=== PATIENT | male | born 1950 | race Caucasian/White ===

== ENCOUNTER → 2017-03-22 | Outpatient (CLI) | payer OTHER ==
[~2017-03-22] MED LIST: ASPCH81 PO; ATOR10TA88 PO; CHOL100027 PO; CLR10 PO; CLTP PO; FISHOIL PO; FLNIN; LISI20TA55 PO; MULT-506 PO
== END | disposition home or self-care (01) ==
LOC: C.LAB 14:47
PROVIDERS: ATTEND Orthopaedic Surgery Sports Medicine
DX: S83.242D Other tear of medial meniscus, current injury, left knee, subsequent encounter (principal); X58.XXXA Exposure to other specified factors, initial encounter

== ENCOUNTER 2024-04-13 11:13 | Observation (INO) ==
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
[2024-04-13] MEDS: SODIUM CHLORIDE 0.9% 1,000 ML IV SCH (11:21)
[2024-04-13] MEDS: RAPID SEQUENCE INDUCTION BAG ONE (11:21)
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
[2024-04-13] MEDS: DIPHTHER/TETAN/PERTUS Vaccine (Tdap, Adol/Adult) 0.5mL IM ONE (11:48)
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
[2024-04-13] MEDS: AMPICILLIN/SULBACTAM SOD 3,000 MG in SODIUM CHLOR 0.9% MINI-B 100 ML IV STA (12:14)
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
[2024-04-13 12:51] LABS: Basophils # (auto) 0.04 K/uL (0.00-0.20); Basophils % (auto) 0.5 %; Eosinophils # (auto) 0.11 K/uL (0.00-0.50); Eosinophils % (auto) 1.5 %; Hematocrit (blood only) 38.9 % (42.0-52.0); Hemoglobin 13.3 g/dl (14.0-18.0); Immature Granulocytes # (auto) 0.02 K/uL (0.01-0.20); Immature Granulocytes % (auto) 0.3 %; Lymphocytes # (auto) 1.96 K/uL (1.20-3.40); Lymphocytes % (auto) 26.2 %; Mean Corpuscular Hemoglobin 28.9 pg (25.0-34.0); Mean Corpuscular Hgb Conc 34.2 g/dL (32.0-36.0); Mean Corpuscular Volume 84.4 fL (80.0-100.0); Mean Platelet Volume 8.1 fL (9.4-12.4); Monocytes # (auto) 0.73 K/uL (0.11-0.59); Monocytes % (auto) 9.8 %; Neutrophils # (auto) 4.62 K/uL (1.40-6.50); Neutrophils % (auto) 61.7 %; Platelet Count 232 K/uL (130-400); RDW Coefficient of Variation 12.8 % (11.5-14.5); RDW Standard Deviation 39.3 fL (36.4-46.3); Red Blood Count 4.61 M/uL (4.70-6.10); White Blood Count 7.48 K/ul (4.8-10.8)
[2024-04-13 13:10] LABS: Partial Thromboplastin Ratio 0.9; Partial Thromboplastin Time 25 Seconds (21-31); Prothrombin Time 10.5 Seconds (9.0-12.0)
[2024-04-13 13:14] LABS: BUN Creatinine Ratio 18.5 (10-20); Calcium 9.6 mg/dl (8.6-10.3); Creatinine Clr Calc Pharmacy 48.8 ml/min; Est GFR (African American) 59.1 ml/min; Potassium 3.8 mmol/L (3.5-5.1)
[2024-04-13] MEDS ORDERED: MoRPHine SULFATE 4 MG/ML 1 ML CARP\\VIAL IV PRN (14:37)
[2024-04-13] MEDS ORDERED: MoRPHine SULFATE 2 MG/ML CARP IV PRN (14:37)
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
[2024-04-13] MEDS ORDERED: MIDAZOLAM HCL 1 MG/ML 2ML VIAL ONE (16:14)
[2024-04-13] MEDS ORDERED: fentaNYL citrate PF 100 MCG/2 ML VIAL ONE (16:14)
[2024-04-13] MEDS ORDERED: PROPOFOL IV EMULSION 10 MG/ML 20 ML VIAL IV ONE (16:19)
[2024-04-13] MEDS ORDERED: LIDOCAINE 2% 2 ML VIAL/AMP(20MG/ML) INFIL ONE (16:19)
[2024-04-13] MEDS ORDERED: ROCURONIUM BROMIDE 10 MG/ML 5 ML VIAL IV ONE (16:19)
[2024-04-13] MEDS ORDERED: GLYCOPYRROLATE 0.2 MG/ML VIAL ONE (16:19)
[2024-04-13] MEDS ORDERED: ONDANSETRON INJ 2 MG/ML 2 ML VIAL ONE (16:19)
[2024-04-13] MEDS ORDERED: DEXAMETHASONE SOD INJ 4 MG/ML VIAL ONE (16:19)
[2024-04-13] MEDS ORDERED: SUGAMMADEX SODIUM 200 MG/2 ML VIAL IV ONE (16:20)
[2024-04-13] MEDS ORDERED: ePHEDrine sulfate 50 MG/ML AMP IV PRN (16:22)
[2024-04-13] MEDS ORDERED: ATROPINE SULFATE 0.1 MG/ML 10ML SYR IV PRN (16:22)
[2024-04-13] MEDS ORDERED: DROPERIDOL 5 MG/2 ML VIAL IV PRN (16:22)
--- NOTE | 2024-04-13 16:22 | Anesthesiology Consultation ---
Date of Service April 13, 2024 Assessment & Plan Chart Review Chart Review: Acceptable Risk for Surgery and Patient NOT seen in Pre Admission Testing Consults Requested none History Surgery Operation Date: 04/13/24 18:20 Proposed Procedures p Open Reduction Mandibular Fracture, Repair of Facial Laceration - Mark Ledesma DMD s Extraction of Fractured Teeth - Mark Ledesma DMD Height/Weight Height: 5 ft 10 in Weight: 87.2 kg Allergies Allergy/AdvReac Type Severity Reaction Status Date / Time No Known Drug Allergies Allergy Mild Verified 09/26/23 14:22 strawberry Allergy Unknown UKN Verified 09/26/23 14:22 Medications Home Medications Medication Instructions Recorded Confirmed Last Taken Flonase 1 spray intranasal DAILY, PRN ##0 02/16/09 04/13/24 Unknown loratadine 10 mg tablet 1 tab PO DAILY PRN ##0 02/16/09 04/13/24 Unknown multivitamin 1 tab PO DAILY ##0 02/16/09 04/13/24 Unknown Caltrate 600 plus D 1 tab PO DAILY ##0 12/27/10 04/13/24 Unknown Fish Oil 1 cap PO BID ##0 01/01/12 04/13/24 Unknown cholecalciferol (vitamin D3) 25 1,000 inter.unit PO DAILY ##0 01/01/12 04/13/24 Unknown mcg (1,000 unit) capsule aspirin 81 mg tablet 81 mg PO DIRECTED 09/07/22 04/13/24 Unknown atorvastatin 20 mg tablet (Lipitor) 20 mg PO DAILY 09/07/22 04/13/24 Unknown lisinopril 20 1 tab PO DAILY 04/13/24 04/13/24 Unknown mg-hydrochlorothiazide 25 mg tablet Active Medications Generic Name Dose Route Start Last Admin Trade Name Freq PRN Reason Stop Dose Admin Sodium Chloride 1,000 mls @ 125 mls/hr 04/13/24 11:15 04/13/24 11:21 Nss IV 05/13/24 11:14 125 mls/hr .Q8H ASYA Administration NPO Date Last Intake of Fluids: 04/13/24 Time Last Intake of Fluids: 05:30 Date Last Intake of Solids: 04/13/24 Time Last Intake of Solids: 05:30 Past Medical History Medical History Allergic rhinitis Vitamin D deficiency Prediabetes History of basal cell carcinoma Male erectile disorder of organic origin Malignant neoplasm of prostate Past Family History Family History Other Diabetes Hypertension Stroke Past Surgical History Surgical History History of bilateral carpal tunnel release History of arthroscopy of left shoulder Social History Smoking Status: Never smoker Hx Alcohol Use: No Hx Substance Use: No Physical Exam Vital Signs Last Vital Signs Temp 36.6 C 04/13/24 15:14 Pulse 88 04/13/24 15:14 Resp 18 04/13/24 15:14 BP 151/77 H 04/13/24 15:14 Pulse Ox 96 04/13/24 15:14 O2 Del Method Room Air 04/13/24 15:14 Testing Laboratory Results 04/13/24 11:21 04/13/24 11:21 PT 10.5 Seconds (9.0-12.0) 04/13/24 11:21 INR 1.0 (0.9-1.1) 04/13/24 11:21 APTT 25 Seconds (21-31) 04/13/24 11:21 Blood Type A Positive 04/13/24 11:21 Antibody Screen NEGATIVE 04/13/24 11:21
[2024-04-13] MEDS: CHLORHEXIDINE GLUCONATE 0.12% 480 ML MT ONE (17:49)
[2024-04-13] MEDS: AMPICILLIN/SULBACTAM SOD 3,000 MG in SODIUM CHLOR 0.9% MINI-B 100 ML IV ONE (18:00)
[2024-04-13] MEDS: BUPIVACAINE/EPINEPHRINE 0.5% 1:200,000 1.8 ML CARP ONE (18:17)
--- OUTSIDE RECORDS SUMMARY | 2024-04-13 18:37 | External Medical Summary | Summary of Care ---
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 Name Role Phone Miguelangel Hernández MD Primary Care Provider [phone] Encounter Details Date Type Department Care Team (Late st Contact Info) Description 02/27/2024 Telephone [facility] [address] [place] [address] Miguelangel Hernández MD [address] [place] [address] Allergies Active Allergy Reactions Criticality Noted Date Comments Other - Environmental 06/06/2004 hayfever Soy Allergy 11/26/2013 [place] Extract Hives 11/10/2021 documented as of this encounter (statuses as of 03/10/2024) Medications Medication Sig Dispensed Refills Start Date End Date Status CLARITIN 10 MG PO TABSIndications:Morgan rgic rhinitis due to other allergen 1 TABLET DAILY 90 3 07/26/2008 Active FISH OIL 1000 MG PO CAPS 2 daily Active MENS MULTIVITAMIN PLUS PO TABS 1 daily Active VITAMIN D 1000 UNITS PO CAPSIndications:Sarah min D deficiency 1 capsule daily 30 Cap 11 10/16/2013 Active CALCIUM 500/D 500-200 MG-UNIT PO TABSIndications:Othe r specified prophylactic or treatment measure 1 tab daily 1 Tab 0 10/20/2014 Active White Petrolatum-Mineral Oil (LUBRICATING) 83-15 % OINTIndications:Dry eyes, bilateral Instill into both eyes every night at bedtime. 1 Tube 5 11/03/2018 Active Additional Information Patient not taking.Reported on 02/11/2024 Sildenafil Citrate 100 MG Oral Tablet TAKE ONE TABLET BY MOUTH NEEDED FOR ED 11/03/2019 Active Fluticasone Propionate 50 MCG/ACT Nasal Suspension (Flonase) Administer 2 Sprays into each nostril in the morning. 48 g 2 05/01/2023 Active Diclofenac Sodium 1 % External Gel (Voltaren)Indication s:Medial epicondylitis of right elbow Apply topically to affected area 4 times a day. Apply to R elbow - - use a quarter sized dollop 350 g 1 11/29/2023 Active Refresh 1.4-0.6 % Ophthalmic Solution (polyvinyl alcohol-povidone PF) 1 Drop in the morning and 1 Drop before bedtime. Active Lisinopril-hydroCHLO ROthiazide 20-25 MG Oral TabletIndications:HT N, goal below 140/90 Take 1 Tablet by mouth in the morning. 90 Tablet 3 02/26/2024 Active Atorvastatin Calcium 20 MG Oral Tablet (Lipitor)Indications :Dyslipidemia, goal LDL below 100 Take 1 Tablet by mouth in the morning. 90 Tablet 3 02/26/2024 Active documented as of this encounter (statuses as of 03/10/2024) Active Problems Problem Noted Date Diagnosed Date Prediabetes 11/20/2021 Overview: Per Prediabetes protocol Stage 3a chronic kidney disease 07/18/2020 Overview: Per CKD protocol Malignant neoplasm of prostate 11/05/2019 Personal history of malignant neoplasm of prosta te 10/31/2017 Dyslipidemia, goal LDL below 100 08/14/2013 Vitamin D deficiency 10/02/2012 History of basal cell carcinoma 08/25/2012 Overview: left lower eyelid 01/17 ADVANCE DIRECTIVE INFORMATION 06/07/2005 Overview: no advance directive- has info DJD, LEFT KNEE 01/06/2004 Enthesopathy of hip 01/06/2004 HTN, goal below 140/90 04/26/2003 Chronic rhinitis 04/26/2003 GENERAL OSTEOARTHROSIS 04/26/2003 Other allergic rhinitis Overview: ICD-10 update of inactive term documented as of this encounter (statuses as of 03/10/2024) Resolved Problems Problem Noted Date Diagnosed Date Resolved Date Kidney disease, chronic, sta ge III (GFR 30-59 ml/min) 11/17/2018 07/21/2020 Overview: Per CKD protocol #1 History of nonmelanoma skin cancer 08/29/2017 10/31/2017 Overview: BCC left lower eyelid 01/17 Vitamin D deficiency 10/09/2011 018 MALIGN NEOPL PROSTATE 08/22/20042017 Elevated prostate specific antigen (PSA) 05/25/2004 10/31/2017 Elevated prostate specific antigen (PSA) 05/25/2004 10/14/2008 Overview: Resolved per Duplicate Protocol #2. Spasm of muscle 01/06/2004 10/31/2017 Enthesopathy of hip 01/06/2004 10/14/19 09 Overview: Resolved per Duplicate Protocol #2. Spasm of muscle 01/06/2004 10/14/2008 Overview: Resolved per Duplicate Protocol #2. Enthesopathy of hip 01/06/2004 10/14/19 09 Overview: Resolved per Duplicate Protocol #2. ROUTINE MEDICAL EXAM 04/26/2003 018 SCREEN MAL NEOP-RECTUM 04/26/200311/17 Overview: Resolved per Screening Diagnosis Protocol #6 Dyslipidemia, goal to be determined 08/14/2013 Benign prostatic hyperplasia 10/31/2017 Overview: ICD-10 update of inactive term ICD-10 update of inactive term documented as of this encounter (statuses as of 03/10/2024) Immunizations Name Administration Dates Next Due COVID-19 mRNA, LNP-s, No Pre serve, 2-Dose Series (Moderna) 11/10/2020,10/13/2020 COVID-19, mRNA, LNP-s, PF, B ooster, 100mcg/0.5mg (Moderna) 08/07/2021 Diptheria/Tetanus (Adult) 03/02/1998,09/09/1985 Pneumococcal Conjugate Vacc, 13 Valent (Prevnar) 10/24/2015 Pneumococcal Polysaccharide PPV23 (Pneumovax) 10/20/2014,06/02/2004,03/04/1997 Season Influenza, Cell Cultu re, 18+ Yrs, With Preserv (Flucelvax) 06/01/2017 Seasonal Influenza Virus Vac cine, Unspecified Formulation 07/04/2016 Seasonal Influenza, PF, 6 M & above, IM , (FluLaval or Fluzone) 06/09/2020,07/06/2019,06/02/2018 Seasonal Influenza, Quadriva lent Hd (Fluzone Hd) 06/15/2021 Seasonal Influenza, Quadriva lent, No Preserve, IM 07/02/2016,06/09/2015 Seasonal Influenza, Split, I IV3, With Preserve, Inj 05/22/2014,05/30/2013,07/24/2012,07/09,06/12/2010,07/08/2009,07/29/2008 ,07/16/2007,07/10/2006,06/28/2005,02/2003,06/24/2002 TD - Tetanus/Diptheria (ADULT) 04/23/2007 TDAP (age 10 and older)(Boostrix) 10/16/2014,03/2014 Varicella Zoster Vaccine (Adult) 09/09/2013,04/2012 Zoster Vaccine Recombinant (Shingrix) 02/17/2019 ,12/11/2018,11/04/2018 documented as of this encounter Social History Tobacco Use Types Packs/Day Years Used Date Smoking Tobacco: Never Smokeless Tobacco: Former Chew Quit: 09/09/1983 Comments:quit chew in 1982 Alcohol Use Standard Drinks/Week Comments Yes 1.7 (1 standard drink = 0.6 oz p ure alcohol) occ PHQ-2 Answer Date Recorded PHQ Adult Total Score 0 11/15/2023 Hunger Vital Sign Answer Date Recorded Worried About Running Out of Food in the Last Ye ar Never true 11/05/2019 Ran Out of Food in the Last Year Never true 11/05/2019 Utilities Answer Date Recorded Do you have trouble paying y our heating, water, or electric bill? (Adult - for ages 18 years and over) Not on file 02/25/2024 Is your family able to pay t he heat, water, or electric bill? (Household - for ages 0-17 years) Not on file 02/25/2024 Does your family have access to good internet? (Household - for ages 0-17 years) Not on file 02/25/2024 Social Connections Answer Date Recorded How often do you feel lonely or isolated from those around you? (Adult - for ages 18 years and over) Not on file 02/25/2024 Sex and Gender Information Value Date Recorded Sex Assigned at Male 11/05/2019 8:38 AM EST Gender Identity Male 11/05/2019 8:38 AM EST Sexual Orientation Straight 11/05/2019 8: 38 AM EST Job Start Date Occupation Industry Not on file Not on file Not on file documented as of this encounter Miscellaneous Notes * Telephone Encounter - Christianne Pena OSA - 02/27/2024 2:31 PM EDT 03/10/24 2nd Request for Medical Records [facility]. Release sent to [facility] today. Send to [facility]. 02/27/24 Rec Release of Medical Records from [facility] for pt. Release sent to [facility]. Sent to [facility]. documented in this encounter Plan of Treatment Upcoming Encounters Date Type Department Care Team (Late st Contact Info) Description 11/11/2024 10:40 AM EST Office Visit [facility] [place] [address] [place] [address] Ellen Allison PA-C [address] [place] [address] 11/16/2024 9:40 AM EDT Office Visit [address] [place] [address] Miguelangel Hernández MD [address] [place] [address] Health Maintenance Due Date Last Done Comments *BASELINE EKG FOR HTN 12/18/2022 COVID-19 Vaccine (2022- season) 2023 07/15/2023, 08/07/2021, 11/10/2020, Additional history exists Influenza Vaccine (FLU shot) (#1) 2024 06/15/2021, 06/09/2020, 07/06/2019, Additional history exists GFR 05/17/2024 11/15/2023, 03/2023, 11/10/2021, Additional history exists DTaP,Tdap,and Td Vaccines (3 - Td or Tdap) 10/16/2024 10/16/2014, 10/16/2013, 04/23/2007, Additional history exists Albumin/Creatinine Ratio 11/14/2024 024, 11/10/2021, 11/08/2020, Additional history exists CKD HGB USE SMARTSET 36696 11/14/202411/14, 11/13/2022, 11/10/2021, Additional history exists CKD PHOS USE SMARTSET 36911 11/14/2024 030 04/2024, 11/13/2022, 11/10/2021, Additional history exists Depression Screening 11/14/2024 11/15/2023 HbA1c 11/14/2024 11/15/2023, 0 03/2023, 11/10/2021, Additional history exists Fecal Occult Blood Test Discontinued 02/22/20, 02/08/2001, 04/20/2000, Additional history exists Pneumococcal Vaccine: 65+ Years Completed 10/24/2015, 10/20/2014, 06/02/2004, Additional history exists Zoster Vaccines Completed 02/17/2019, 040 12/2018, 11/04/2018, Additional history exists Colonoscopy Discontinued 02/19/2024, 02/07, 11/26/2013, Additional history exists Colorectal Cancer Screening Discontinued Cologuard Discontinued GARDASIL-HPV IMMUNIZATION SERIES Aged Out No longer eligible based on patient's age to complete this topic Hepatitis B Aged Out No longer eligi ble based on patient's age to complete this topic MENINGOCOCCAL (MENACTRA/MENVEO) Aged Out No longer eligible based on patient's age to complete this topic Sigmoidoscopy Discontinued documented as of this encounter Medical Devices Not on filedocumented as of this encounter Advance Directives Documents on File Type Date Recorded Patient Bioinformatics Technician Expl anation Advance Directives and Living Will 11/26/2023 signed on 11/07/2023 ADVANCE DIRECTIVE / LIVING WILL Power of Handyman 11/26/2023 signed on 11/07/2023 POWER OF TUFT MACHINE OPERATOR Care Teams Chrome Plater Helper Relationship Specialty Start Date End Date Miguelangel Hernández MD [address] [place] [address] PCP - General 01/29/02 documented as of this encounter
--- OUTSIDE RECORDS SUMMARY | 2024-04-13 18:37 | External Medical Summary | Summary of Care ---
Author Name Unknown Organization [facility] Address [address] [facility] [place] [address] Phone [phone] Care Team Providers Care Project Archivist Name Role Phone Miguelangel Hernández MD Primary Care Provider [phone] Reason for Visit * Reason Comments Acute Had a hoarse throat since his colonoscopy and has a sore throat and ear ache and not sure if he is ill now, has had symptoms for about a week and a half Encounter Details Date Type Department Care Team (Late st Contact Info) Description 03/02/2024 1:00 PM EDT Office Visit [facility] [address] [place] [address] Dayanara Renteria MD [address] [place] [address] Hoarseness of voice*; Risk and functional assessment Allergies Active Allergy Reactions Criticality Noted Date Comments Other - Environmental 06/06/2004 hayfever Soy Allergy 11/26/2013 [place] Extract Hives 11/10/2021 documented as of this encounter (statuses as of 03/02/2024) Medications Medication Sig Dispensed Refills Start Date [...] as of this encounter (statuses as of 03/02/2024) Active Problems Problem Noted Date Diagnosed Date [...] as of this encounter (statuses as of 03/02/2024) Resolved Problems Problem Noted Date Diagnosed Date [...] as of this encounter (statuses as of 03/02/2024) Immunizations Name Administration Dates Next Due COVID-19 mRNA, LNP-s, No Pre serve, 2-Dose Series (Moderna) 11/10/2020,10/13/2020 COVID-19, mRNA, LNP-s, PF, B ooster, 100mcg/0.5mg (Moderna) 08/07/2021 Pneumococcal Conjugate Vacc, 13 Valent (Prevnar) 10/24/2015 Pneumococcal Polysaccharide PPV23 (Pneumovax) 10/20/2014 Season Influenza, Cell Cultu re, 18+ Yrs, With Preserv (Flucelvax) 06/01/2017 Seasonal Influenza Virus Vac cine, Unspecified Formulation 07/04/2016 Seasonal Influenza, PF, 6 M & above, IM , (FluLaval or Fluzone) 06/09/2020,07/06/2019,06/02/2018 Seasonal Influenza, Quadriva lent Hd (Fluzone Hd) 06/15/2021 Seasonal Influenza, Quadriva lent, No Preserve, IM 07/02/2016,06/09/2015 Seasonal Influenza, Split, I IV3, With Preserve, Inj 05/22/2014,05/30/2013,07/24/2012,07/09,06/12/2010,07/08/2009,07/29/2008 ,07/16/2007,07/10/2006 TD - Tetanus/Diptheria (ADULT) 04/23/2007 TDAP (age 10 and older)(Boostrix) 10/16/2014,03/2014 Varicella Zoster Vaccine (Adult) 09/09/2013,04/2012 Zoster Vaccine Recombinant (Shingrix) 02/17/2019 ,12/11/2018,11/04/2018 documented as of this encounter Social History Tobacco Use Types Packs/Day Years Used Date Smoking Tobacco: Never Smokeless Tobacco: Former Chew Quit: 09/09/1983 Tobacco Cessation:Counseling Given: Not Answered Comments:quit chew in 1982 Alcohol Use Standard [...] on file documented as of this encounter Last Filed Vital Signs Vital Sign Reading Time Taken Comments Blood Pressure 146/64 03/02/2024 1:00 PM EDT Pulse 89 03/02/2024 1:00 PM EDT Temperature 36.5 C (97.7 F) 03/02/2024 1:00 PM ED T Respiratory Rate - - Oxygen Saturation 97% 03/02/2024 1:00 PM EDT Inhaled Oxygen Concentration - - Weight 86 kg (189 lb 9.6 oz) 03/02/2024 1:00 PM EDT Height 177.8 cm (5' 10") 03/02/2024 1:00 PM EDT Body Mass Index 27.2 03/02/2024 1:00 PM EDT documented in this encounter Patient Instructions * Patient Instructions* Otilia Bynum LPN - 03/02/2024 1:05 PM EDT Patient Instructions - Fall Prevention (This education is for all patients over 65 regardless of symptoms) Remember to take your current medications as prescribed. In order to prevent falls, you are encouraged to: Exercise Utilize assistive/adaptive devices Avoid multifocal lenses when walking Avoid hazards in home Maintain a regular toileting schedule Any questions please contact our office. Preventing Falls in the Home (This education is for all patients over 65 regardless of symptoms) As you get older, falls are more likely. Thats because your reaction time slows. Your muscles and joints may also get stiffer, making them less flexible. Illness, medications, and vision changes can also affect your balance. A fall could leave you unable to live on your own. To make your home safer, follow these tips: Floors Put nonskid pads under area rugs Remove throw rugs Replace worn floor coverings Tack carpets firmly to each step on carpeted stairs. Put nonskid strips on the edges of uncarpeted stairs Keep floors and stairs free of clutter and cords Arrange furniture so there are clear pathways Clean up any spills right away Bathrooms Install grab bars in the tub or shower Apply nonskid strips or put a nonskid rubber mat in the tub or shower Sit on a bath chair to bathe Use bathmats with nonskid backing Lighting Keep a flashlight in each room Put a nightlight along the pathway between the bedroom and the bathroom [employer] Patient Education Copyright 2008 - 2010 [employer] except where otherwise noted Preventing Falls: Exercises to Improve Balance, Flexibility, Strength, and Staying Power (This education is for all patients over 65 regardless of symptoms) Certain types of exercises may help make you less likely to fall. Try the ones below. Or do other exercises that your healthcare provider suggests. Depending on your health, you may need to start slowly. Dont let that stop you. Even small amounts of exercise can help you. Be sure to talk to yourhealthcare provider before starting any exercise program. Improve Balance Many types of exercise can help improve balance. Sudhir chi and yoga are good examples. Heres another one to try. You can do it anytime and almost anywhere. Stand next to a counter or solid support. Push yourself up onto your tiptoes. Hold for 5 seconds. If you start to lose your balance, hold on to the counter. Rest and repeat 5 times. Work up to holding for 20 to 30 seconds, if you can. Increase Flexibility Being more flexible makes it easier for you to move around safely. Try exercises like the seated hamstring stretch. Sit in a chair and put one foot on a stool. Straighten your leg and reach with both hands down either side of your leg. Reach as far down your leg as you can. Hold for about 20 seconds. Go back to the starting position. Then repeat 5 times. Switch legs. Build Strength Resistance exercises help build strength. You can do them without equipment. Or you can use weights, elastic bands, or special machines. One such exercise is called the biceps curl. You can hold a 1 pound weight or even a can of soup. Do this exercise at least 3 times a week. Strive for everyday. Sit up straight in a chair. Keep your elbow close to your body and your wrist straight. Bend your arm, moving your hand up to your shoulder. Then slowly lower your arm. Repeat 5 times. Switch to the other arm. Build Your Staying Power Aerobic exercises make your heart and lungs stronger so you can keep moving longer. Walking and swimming are two of the best types of exercises you can do. Using a stationary bike is great, too. Find an aerobic exercise that you enjoy. Start slowly and build up. Even 5 minutes is helpful. Aimfor a goal of 30 minutes, at least 3 times a week. You dont have to do 30 minutes in one session. Break it up and walk a little throughout the day. More Helpful Tips Start easy. Slowly work up to doing more. Talk with your healthcare provider about the best exercises for you. Call senior centers or health clubs about exercise programs. If needed, have a family member watch you walk every so often to check your stability. Exercise with a friend. Choose an activity you both enjoy. Try exercises that you can do anytime, anywhere. Here are two examples. Have someone with you when you first try these: Practice walking by placing one foot right in front of the other. Stand up and sit down 10 times. Repeat this throughout the day. [employer] Patient Education Copyright 2009 - 2010 [employer] except where otherwise noted. Preventing Falls: Moving Safely Using a Cane or Walker (This education is for all patients over 65 regardless of symptoms) Keep the cane away from your feet so you dont trip. A walking aid, such as a cane or walker, can help you stay more independent and avoid falls. Remember to keep your walking aid within easy reach when youre in a chair or in bed. And learn how to use it safely so you dont injure yourself. Using a Cane If you have a stronger side, hold the cane on that side. Get your balance. Move the cane and your weaker leg forward. Support your weight on both the cane and your weaker side. Step with your stronger leg. Start again from step 1. If youre using a folding walker, be sure you know how to lock it open. Check that its locked open before each use. Using a Walker Roll the walker (or lift it, if youre using one without wheels) forward about 12 inches. Step forward with your weaker leg first. Use the walker to help keep your balance. Bring your other foot forward to the center of the walker. Start again from step 1. Helpful Tips Check with your healthcare provider about the right walking aid to use. Ask about a walker with a seat attached. Check the tips of your cane or walker to make sure they have nonskid covers. Move slowly from room to room. Dont cooper. Sit down to get dressed. Use a jennifer pack or backpack to keep your hands free. Get help for jobs that mean climbing, even on a stepstool. [employer] Patient Education Copyright 2008 - 2010 [employer] except where otherwise noted. Treating Urinary Incontinence in Men (This education is for all patients over 65 regardless of symptoms) You can't always control the release of urine. You may leak urine. Or you may not be able to hold your urine until you can get to a bathroom. This is called urinary incontinence. The problem can be managed. Talk to your doctor about your treatment options. Taking Medications Prescription medications may help you. They may: Help the sphincter to work better. (This is the muscle that closes to keep urine from leaking out of the bladder.) Help stop the bladder from tiara too often to push urine out. Help the bladder muscles contract with more force. Help relax the sphincter muscle and allow urine to flow more freely. Making Changes to Your Routine Certain changes in your daily routine may help. These include: Avoiding caffeine and alcohol. Using timed voiding. This is following a schedule for drinking fluids and urinating. Doing Kegel exercises daily. These exercises involve tightening the muscles in your sphincter and around your bladder to help strengthen them. Your doctor can explain how to do them. Using a Catheter A catheter is a narrow tube that is inserted through the urethra into the bladder. It drains urine.A condom catheter covers the penis. It channels urine into a collection bag. It is worn most of thetime. Intermittent catheterization means inserting a catheter to drain the bladder, then removing it. This is done on a regular schedule. Having Surgery If other options don't work, surgery may be recommended. If surgery is an option, your healthcare provider can discuss it with you and explain its risks and benefits. Healing After Prostate Surgery Surgery on the prostate gland can cause incontinence. Most often, the incontinence is only for a short time. It clears up when healing is complete. Very rarely, prostate surgery can result in permanent incontinence. documented in this encounter Progress Notes * Dayanara Renteria MD - 03/02/2024 1:11 PM EDT ASSESSMENT / PLAN: Gabriel Goyal is a 74 year old male Hoarseness of voice (Primary) Risk and functional assessment Cont supportive care Call if worsening Reviewed natural course of viral illness If needed, prefers contact by: Ok to leave message on phone: SUBJECTIVE: Nursing Notes: Otilia Byunm LPN 03/02/24 1305 Signed The patient has been properly identified by confirmation of name and date of . Chief Complaint Patient presents with Acute Had a hoarse throat since his colonoscopy and has a sore throat and ear ache and not sure if he is ill now, has had symptoms for about a week and a half HPI: Gabriel Goyal is a 74 year old male. Here for recheck. Colonoscopy completed 02/19/24 Anesthesia provided via mask only This is day 12 of illness He says that night he felt aches and chills, sore throat, cough and hoarsenes.. Hoarseness has persisted since then but is overall improving Aches, chills have resolved Mild cough Hydrating, mucinex, tylenol Denies cigarette use or excessive alcohol use Patient Active Problem List Diagnosis HTN, goal below 140/90 Chronic rhinitis GENERAL OSTEOARTHROSIS DJD, LEFT KNEE Enthesopathy of hip Other allergic rhinitis ADVANCE DIRECTIVE INFORMATION History of basal cell carcinoma Vitamin D deficiency Dyslipidemia, goal LDL below 100 Personal history of malignant neoplasm of prostate Malignant neoplasm of prostate (HCC) Stage 3a chronic kidney disease Prediabetes Current Outpatient Medications Medication Sig Dispense Refill CLARITIN 10 MG PO TABS 1 TABLET DAILY 90 3 FISH OIL 1000 MG PO CAPS 2 daily MENS MULTIVITAMIN PLUS PO TABS 1 daily VITAMIN D 1000 UNITS PO CAPS 1 capsule daily 30 Cap 11 CALCIUM 500/D 500-200 MG-UNIT PO TABS 1 tab daily 1 Tab 0 Sildenafil Citrate 100 MG Oral Tablet TAKE ONE TABLET BY MOUTH NEEDED FOR ED Fluticasone Propionate 50 MCG/ACT Nasal Suspension (Flonase) Administer 2 Sprays into each nostril in the morning. 48 g 2 Diclofenac Sodium 1 % External Gel (Voltaren) Apply topically to affected area 4 times a day. Applyto R elbow - - use a quarter sized dollop 350 g 1 Refresh 1.4-0.6 % Ophthalmic Solution (polyvinyl alcohol-povidone PF) 1 Drop in the morning and 1 Drop before bedtime. Lisinopril-hydroCHLOROthiazide 20-25 MG Oral Tablet Take 1 Tablet by mouth in the morning. 90 Tablet 3 Atorvastatin Calcium 20 MG Oral Tablet (Lipitor) Take 1 Tablet by mouth in the morning. 90 Tablet 3 White Petrolatum-Mineral Oil (LUBRICATING) 83-15 % OINT Instill into both eyes every night at bedtime. (Patient not taking: Reported on 02/11/2024) 1 Tube 5 No current facility-administered medications for this visit. OBJECTIVE: BP 146/64 | Pulse 89 | Temp 36.5 C (97.7 F) | Ht 1.778 m (5' 10") | Wt 86 kg (189 lb 9.6 oz) | SpO2 97% | BMI 27.20 kg/m | BSA 2.06 m Vitals reviewed and is normotensive / afebrile / and not tachycardic General: No acute distress. Neuro: Alert Pleasant & interactive. Respiratory: Good inspiratory effort, no labored breathing. CTAB CV: RRR no M R G HEENT: Conjunctivae appear clear. No swelling noted face or lips. TM s clear b/l Skin: No rash visible on exposed skin areas, normal coloration & appears dry. Psych: Normal affect. Fluent speech. Dayanara Renteria MD [address] [address] Patient Instructions Patient Instructions - Fall Prevention (This education is for all patients over 65 regardless of symptoms) Remember to take your current medications as prescribed. In order to prevent falls, you are encouraged to: Exercise Utilize assistive/adaptive devices Avoid multifocal lenses when walking Avoid hazards in home Maintain a regular toileting schedule Any questions please contact our office. Preventing Falls in the Home (This education is for all patients over 65 regardless of symptoms) As you get older, falls are more likely. Thats because your reaction time slows. Your muscles and joints may also get stiffer, making them less flexible. Illness, medications, and vision changes can also affect your balance. A fall could leave you unable to live on your own. To make your home safer, follow these tips: Floors Put nonskid pads under area rugs Remove throw rugs Replace worn floor coverings Tack carpets firmly to each step on carpeted stairs. Put nonskid strips on the edges of uncarpeted stairs Keep floors and stairs free of clutter and cords Arrange furniture so there are clear pathways Clean up any spills right away Bathrooms Install grab bars in the tub or shower Apply nonskid strips or put a nonskid rubber mat in the tub or shower Sit on a bath chair to bathe Use bathmats with nonskid backing Lighting Keep a flashlight in each room Put a nightlight along the pathway between the bedroom and the bathroom [employer] Patient Education Copyright 2008 - 2010 [employer] except where otherwise noted Preventing Falls: Exercises to Improve Balance, Flexibility, Strength, and Staying Power (This education is for all patients over 65 regardless of symptoms) Certain types of exercises may help make you less likely to fall. Try the ones below. Or do other exercises that your healthcare provider suggests. Depending on your health, you may need to start slowly. Dont let that stop you. Even small amounts of exercise can help you. Be sure to talk to yourhealthcare provider before starting any exercise program. Improve Balance Many types of exercise can help improve balance. Sudhir chi and yoga are good examples. Heres another one to try. You can do it anytime and almost anywhere. Stand next to a counter or solid support. Push yourself up onto your tiptoes. Hold for 5 seconds. If you start to lose your balance, hold on to the counter. Rest and repeat 5 times. Work up to holding for 20 to 30 seconds, if you can. Increase Flexibility Being more flexible makes it easier for you to move around safely. Try exercises like the seated hamstring stretch. Sit in a chair and put one foot on a stool. Straighten your leg and reach with both hands down either side of your leg. Reach as far down your leg as you can. Hold for about 20 seconds. Go back to the starting position. Then repeat 5 times. Switch legs. Build Strength Resistance exercises help build strength. You can do them without equipment. Or you can use weights, elastic bands, or special machines. One such exercise is called the biceps curl. You can hold a 1 pound weight or even a can of soup. Do this exercise at least 3 times a week. Strive for everyday. Sit up straight in a chair. Keep your elbow close to your body and your wrist straight. Bend your arm, moving your hand up to your shoulder. Then slowly lower your arm. Repeat 5 times. Switch to the other arm. Build Your Staying Power Aerobic exercises make your heart and lungs stronger so you can keep moving longer. Walking and swimming are two of the best types of exercises you can do. Using a stationary bike is great, too. Find an aerobic exercise that you enjoy. Start slowly and build up. Even 5 minutes is helpful. Aimfor a goal of 30 minutes, at least 3 times a week. You dont have to do 30 minutes in one session. Break it up and walk a little throughout the day. More Helpful Tips Start easy. Slowly work up to doing more. Talk with your healthcare provider about the best exercises for you. Call senior centers or health clubs about exercise programs. If needed, have a family member watch you walk every so often to check your stability. Exercise with a friend. Choose an activity you both enjoy. Try exercises that you can do anytime, anywhere. Here are two examples. Have someone with you when you first try these: Practice walking by placing one foot right in front of the other. Stand up and sit down 10 times. Repeat this throughout the day. [employer] Patient Education Copyright 2009 - 2010 [employer] except where otherwise noted. Preventing Falls: Moving Safely Using a Cane or Walker (This education is for all patients over 65 regardless of symptoms) Keep the cane away from your feet so you dont trip. A walking aid, such as a cane or walker, can help you stay more independent and avoid falls. Remember to keep your walking aid within easy reach when youre in a chair or in bed. And learn how to use it safely so you dont injure yourself. Using a Cane If you have a stronger side, hold the cane on that side. Get your balance. Move the cane and your weaker leg forward. Support your weight on both the cane and your weaker side. Step with your stronger leg. Start again from step 1. If youre using a folding walker, be sure you know how to lock it open. Check that its locked open before each use. Using a Walker Roll the walker (or lift it, if youre using one without wheels) forward about 12 inches. Step forward with your weaker leg first. Use the walker to help keep your balance. Bring your other foot forward to the center of the walker. Start again from step 1. Helpful Tips Check with your healthcare provider about the right walking aid to use. Ask about a walker with a seat attached. Check the tips of your cane or walker to make sure they have nonskid covers. Move slowly from room to room. Dont cooper. Sit down to get dressed. Use a jennifer pack or backpack to keep your hands free. Get help for jobs that mean climbing, even on a stepstool. [employer] Patient Education Copyright 2009 - 2010 [employer] except where otherwise noted. Treating Urinary Incontinence in Men (This education is for all patients over 65 regardless of symptoms) You can't always control the release of urine. You may leak urine. Or you may not be able to hold your urine until you can get to a bathroom. This is called urinary incontinence. The problem can be managed. Talk to your doctor about your treatment options. Taking Medications Prescription medications may help you. They may: Help the sphincter to work better. (This is the muscle that closes to keep urine from leaking out of the bladder.) Help stop the bladder from tiara too often to push urine out. Help the bladder muscles contract with more force. Help relax the sphincter muscle and allow urine to flow more freely. Making Changes to Your Routine Certain changes in your daily routine may help. These include: Avoiding caffeine and alcohol. Using timed voiding. This is following a schedule for drinking fluids and urinating. Doing Kegel exercises daily. These exercises involve tightening the muscles in your sphincter and around your bladder to help strengthen them. Your doctor can explain how to do them. Using a Catheter A catheter is a narrow tube that is inserted through the urethra into the bladder. It drains urine.A condom catheter covers the penis. It channels urine into a collection bag. It is worn most of thetime. Intermittent catheterization means inserting a catheter to drain the bladder, then removing it. This is done on a regular schedule. Having Surgery If other options don't work, surgery may be recommended. If surgery is an option, your healthcare provider can discuss it with you and explain its risks and benefits. Healing After Prostate Surgery Surgery on the prostate gland can cause incontinence. Most often, the incontinence is only for a short time. It clears up when healing is complete. Very rarely, prostate surgery can result in permanent incontinence. * Otilia Bynum LPN - 03/02/2024 1:05 PM EDT Urinary Incontinence Plan of Care Documentation: (This education is for all patients over 65 regardless of symptoms) Current medications reconciled. Patient encouraged to: Practice kegal exercises Provide education materials Use the restroom every 2 hours throughout the day Limit caffeine, alcohol, spicy foods and acidic foods Keep a bladder diary Limit fluid intake 3-4 hours before bed Lose weight Prevent constipation Take fluid pills at a time when you can get to the bathroom quickly Control sugar better if diabetic Limit fluid intake to 60 oz. per day Wear support stockings (TEDs)if you have edema Otilia Bynum LPN 03/02/2024 documented in this encounter Nursing Notes * Otilia Bynum LPN - 03/02/2024 1:04 PM EDT The patient has been properly identified by confirmation of name and date of . Chief Complaint Patient presents with Acute Had a hoarse throat since his colonoscopy and has a sore throat and ear ache and not sure if he is ill now, has had symptoms for about a week and a half documented in this encounter Plan of Treatment Upcoming Encounters Date Type Department Care Team (Late st Contact Info) Description 11/11/2024 10:40 AM EST Office Visit [facility] [address] [place], [place] [address] Ellen Allison PA-C [address] [place] [phone] 11/16/2024 9:40 AM EDT Office Visit [facility] [address] [place] [facility] [place] [id number] Miguelangel Hernández MD [address] [place] [address] Health Maintenance Due Date Last Done Comments *BASELINE EKG FOR HTN 12/18/2022 COVID-19 Vaccine ( season) 2023 07/15/2023, 08/07/2021, 11/10/2020, Additional history exists Influenza Vaccine (FLU shot) (Season Ended) 2024 06/15/2021, 06/09/2020, 07/06/2019, Additional history exists GFR 05/17/2024 11/15/2023, 03/2023, 11/10/2021, Additional history exists DTaP,Tdap,and Td Vaccines (3 - Td or Tdap) 10/16/2024 10/16/2014, 10/16/2013, 04/23/2007, Additional history exists Albumin/Creatinine Ratio 11/14/2024 024, 11/10/2021, 11/08/2020, Additional history exists CKD HGB USE SMARTSET 52740 11/14/202411/14, 11/13/2022, 11/10/2021, Additional history exists CKD PHOS USE SMARTSET 29169 11/14/20240 04/2024, 11/13/2022, 11/10/2021, Additional history exists Depression Screening 11/14/2024 11/15/2023 HbA1c 11/14/2024 11/15/2023, 03/2023, 11/10/2021, Additional history exists Fecal Occult Blood Test Discontinued 02/22/20, 02/08/2001, 04/20/2000, Additional history exists Pneumococcal Vaccine: 65+ Years Completed 10/24/2015, 10/20/2014, 06/02/2004, Additional history exists Zoster Vaccines Completed 02/17/2019, 12/2018, 11/04/2018, Additional history exists Colonoscopy Discontinued [...] Not on filedocumented as of this encounter Visit Diagnoses Diagnosis Hoarseness of voice- Primary Dysphonia Risk and functional assessment Screening for unspecified condition documented in this encounter Advance Directives Documents on File Type Date Recorded Patient Willower Expl anation Advance Directives and Living Will 11/26/2023 signed on 11/07/2023 ADVANCE DIRECTIVE / LIVING WILL Power of Director Of Safety 11/26/2023 signed on 11/07/2023 POWER OF EARTH MOVER Care Teams Project Archivist Relationship Specialty Start Date End Date Miguelangel Hernández MD [address] [place] [address] PCP - General 01/29/02 documented as of this encounter
--- OUTSIDE RECORDS SUMMARY | 2024-04-13 18:38 | External Medical Summary | Summary of Care ---
Author Name Unknown Organization [facility] Address [address] [place] [address] Phone [phone] Care Team Providers Care Costing Analyst Name Role Phone Miguelangel Hernández MD Primary Care Provider [phone] Encounter Details Date Type Department Care Team (Late st Contact Info) Description 02/27/2024 Telephone [facility] [address] [place] [address] Miguelangel Hernández MD [address] [place] [address] Allergies Active Allergy Reactions Criticality Noted Date Comments Other - Environmental 06/06/2004 hayfever Soy Allergy 11/26/2013 [place] Extract Hives 11/10/2021 documented as of this encounter (statuses as of 02/27/2024) Medications Medication Sig Dispensed Refills Start Date [...] as of this encounter (statuses as of 02/27/2024) Active Problems Problem Noted Date Diagnosed Date [...] as of this encounter (statuses as of 02/27/2024) Resolved Problems Problem Noted Date Diagnosed Date [...] as of this encounter (statuses as of 02/27/2024) Immunizations Name Administration Dates Next Due COVID-19 [...] Pena OSA - 02/27/2024 2:31 PM EDT 02/27/24 Rec Release of Medical Records from [facility] for pt. Release sent to [facility] Records. Sent to [facility]. documented in this encounter Plan of Treatment Upcoming Encounters Date Type Department Care Team (Late st Contact Info) Description 11/11/2024 10:40 AM EST Office Visit [facility]ermatology [facility] [address] [facility] [place] [address] Ellen Allison PA-C [address] [facility] [place] [phone] 11/16/2024 9:40 AM EDT Office Visit [facility] [address] [facility] [address] Miguelangel Hernández MD [address] [facility] [place] [phone] Health Maintenance Due Date Last Done Comments *BASELINE EKG FOR HTN 12/18/2022 COVID-19 Vaccine ( season) 2023 07/15/2023, 08/07/2021, 11/10/2020, Additional history exists Influenza Vaccine (FLU shot) (Season Ended) 2024 06/15/2021, 06/09/2020, 07/06/2019, Additional history exists GFR 05/17/2024 11/15/2023, 0 03/2023, 11/10/2021, Additional history exists DTaP,Tdap,and Td Vaccines (3 - Td or Tdap) 10/16/2024 10/16/2014, 10/16/2013, 04/23/2007, Additional history exists Albumin/Creatinine Ratio 11/14/2024 024, 11/10/2021, 11/08/2020, Additional history exists CKD HGB USE SMARTSET 73668 11/14/202411/14, 11/13/2022, 11/10/2021, Additional history exists CKD PHOS USE SMARTSET 03434 11/14/20240 04/2024, 11/13/2022, 11/10/2021, Additional history exists Depression Screening 11/14/2024 11/15/2023 HbA1c 11/14/2024 11/15/2023, 03/2023, 11/10/2021, Additional history exists Fecal Occult Blood Test Discontinued 02/22/20 02, 02/08/2001, 04/20/2000, Additional history exists Pneumococcal Vaccine: [...] Documents on File Type Date Recorded Patient Sleeve Setter Lockstitch Expl anation Advance Directives and Living Will 11/26/2023 signed on 11/07/2023 ADVANCE DIRECTIVE / LIVING WILL Power of Business Account Specialist 11/26/2023 signed on 11/07/2023 POWER OF JOB COST ESTIMATOR Care Teams Costing Analyst Relationship Specialty Start Date End Date Miguelangel Hernández MD [address] [place] [facility] [place] [facility] [place] [address] PCP - General 01/29/02 documented as of this encounter
--- OUTSIDE RECORDS SUMMARY | 2024-04-13 18:38 | External Medical Summary | Summary of Care ---
Author Name Unknown Organization [facility] Address [address] [facility] [place] [address] Phone [phone] Care Team Providers Care Account Solutions Analyst Name Role Phone Miguelangel Hernández MD Primary Care Provider Reason for Visit * Reason Onset Date Comments Appointment 11/15/2023 Colonoscopy Encounter Details Date Type Department Care Team (Late st Contact Info) Description 11/15/2023 Telephone [facility] [address] [place] [address] Miguelangel Hernández MD [address] [place] [address] Appointment (Colonoscopy) Allergies Active Allergy Reactions Criticality Noted Date Comments Other - Environmental 06/06/2004 hayfever Soy Allergy 11/26/2013 [place] Extract Hives 11/10/2021 documented as of this encounter (statuses as of 12/03/2023) Medications Medication Sig Dispensed Refills Start Date End Date Status CLARITIN 10 MG PO TABSIndications: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 1 Tube 5 11/03/2018 Active Sildenafil Citrate 100 MG Oral Tablet TAKE ONE TABLET BY MOUTH NEEDED FOR ED 0 11/03/2019 Active Lisinopril-hydroCHLO ROthiazide 20-25 MG Oral TabletIndications:HT N, goal below 140/90 Take 1 Tablet by mouth in the morning. 90 Tablet 3 01/29/2023 Active Atorvastatin Calcium 20 MG Oral Tablet (Lipitor)Indications :Dyslipidemia, goal LDL below 100 Take 1 Tablet by mouth in the morning. 90 Tablet 3 02/12/2023 Active Fluticasone Propionate 50 MCG/ACT Nasal Suspension (Flonase) Administer 2 Sprays into each nostril in the morning. 48 g 2 05/01/2023 Active documented as of this encounter (statuses as of 12/03/2023) Active Problems Problem Noted Date Diagnosed Date [...] as of this encounter (statuses as of 12/03/2023) Resolved Problems Problem Noted Date Diagnosed Date [...] as of this encounter (statuses as of 12/03/2023) Immunizations Name Administration Dates Next Due COVID-19 [...] in the Last Year Never true 11/05/2019 Sex and Gender Information Value Date Recorded Sex Assigned at Male 11/05/2019 8:38 AM EST Gender Identity Male 11/05/2019 8:38 AM EST Sexual Orientation Straight 11/05/2019 8: 38 AM EST Job Start Date Occupation Industry Not on file Not on file Not on file documented as of this encounter Miscellaneous Notes * Telephone Encounter - Marbella Mclean OSA - 12/03/2023 4:44 PM EDT Colon 02/18 * Telephone Encounter - Bethany Live OSA - 12/03/2023 3:37 PM EDT Lmm for pt. * Telephone Encounter - Nemo Hussein OSA - 11/15/2023 10:24 AM EST Please contact patient to schedule Colonoscopy. Patient would like this done at [facility]. Dx: Special screening for malignant neoplasms, colon [Z12.11] Thank you. documented in this encounter Plan of Treatment Upcoming Encounters Date Type Department Care Team (Latest Contact Info) Description 02/19/2024 1:00 PM EDT Hospital Encounter ENDO OSS[facility], Endoscopy Room [facility] [address] [place] [phone] Pranay Gordon MD [address] [place] [address] 02/19/2024 1:00 PM EDT - 02/19/2024 1:30 PM EDT Surgery ENDO [facility], Endoscopy Room [facility] [address] [place] [phone] Pranay Gordon MD [address] [place] [id number] COLONOSCOPY FLEXIBLE PROXIMAL DIAGNOSTIC 11/11/2024 10:40 AM EST Office Visit Dermatology [address] [place] [address] Ellen Allison PA-C [address] [place] [phone] 11/16/2024 9:40 AM EDT Office Visit [facility] [address] [facility] [address] Miguelangel Hernández MD [address] [facility] [place] [address] Scheduled Procedures Name Priority Associated Diagnoses Date/Ti me COLONOSCOPY FLEXIBLE PROXIMAL DIAGNOSTIC Special screening for malignant neoplasms, colon 02/19/2024 1:00 PM EDT Health Maintenance Due Date Last Done Comments Cologuard 1994 Sigmoidoscopy 1994 Fecal Occult Blood Test 02/21/2003 02/22/20, 02/08/2001, 04/20/2000, Additional history exists *BASELINE EKG FOR HTN 12/18/2022 Influenza Vaccine (FLU shot) (#1) 2023 06/15/2021, 06/09/2020, 07/06/2019, Additional history exists Colonoscopy 11/27/2023 11/26/2013, 11/26/2013 Colorectal Cancer Screening 11/27/2023 GFR 05/17/2024 11/15/2023, 03/2023, 11/10/2021, Additional history exists DTaP,Tdap,and Td Vaccines (3 - Td or Tdap) 10/16/2024 10/16/2014, 10/16/2013, 04/23/2007, Additional history exists Albumin/Creatinine Ratio 11/14/2024 024, 11/10/2021, 11/08/2020, Additional history exists CKD HGB USE SMARTSET 59644 11/14/202411/14, 11/13/2022, 11/10/2021, Additional history exists CKD PHOS USE SMARTSET 72492 11/14/2024 0304/2024, 11/13/2022, 11/10/2021, Additional history exists Depression Screening 11/14/2024 11/15/2023 HbA1c 11/14/2024 11/15/2023, 03/2023, 11/10/2021, Additional history exists Lipid Panel 11/14/2028 11/15/2023, 03/2023, 11/10/2021, Additional history exists Pneumococcal Vaccine: 65+ Years Completed 10/24/2015, 10/20/2014, 06/02/2004, Additional history exists Zoster Vaccines Completed 02/17/2019, 12/2018, 11/04/2018, Additional history exists COVID-19 Vaccine Completed 07/15/2023, , 11/10/2020, Additional history exists GARDASIL-HPV IMMUNIZATION SERIES Aged Out No longer eligible based on patient's age to complete this topic Hepatitis B Aged Out No longer eligi ble based on patient's age to complete this topic MENINGOCOCCAL (MENACTRA/MENVEO) Aged Out No longer eligible based on patient's age to complete this topic documented as of this encounter Medical Devices Not on filedocumented as of this encounter Advance Directives Documents on File Type Date Recorded Patient Chief Cruiser Expl anation Advance Directives and Living Will 11/26/2023 signed on 11/07/2023 ADVANCE DIRECTIVE / LIVING WILL Power of Corporate Controller 11/26/2023 signed on 11/07/2023 POWER OF FACILITIES CLERK Care Teams Account Solutions Analyst Relationship Specialty Start Date End Date Miguelangel Hernández MD [address] [place] [facility] [place] [address] PCP - General 01/29/02 documented as of this encounter
--- OUTSIDE RECORDS SUMMARY | 2024-04-13 18:38 | External Medical Summary | Summary of Care ---
Author Name Unknown Organization [facility] Address [address] [facility] [place] [address] Phone [phone] Care Team Providers Care Flooring Machine Operator Name Role Phone Miguelangel Hernández MD Primary Care Provider [phone] Reason for Visit * Reason Onset Date Comments Appointment 11/15/2023 Colonoscopy Encounter Details Date Type Department Care Team (Late st Contact Info) Description 11/15/2023 Telephone [facility] [address] [place] [address] Miguelangel Hernández MD [address] [place] [address] Appointment (Colonoscopy) Allergies Active Allergy Reactions Criticality Noted Date Comments Other - Environmental 06/06/2004 hayfever Soy Allergy 11/26/2013 [place] Extract Hives 11/10/2021 documented as of this [...] encounter Miscellaneous Notes * Telephone Encounter - Bethany Live OSA - 12/03/2023 3:37 PM EDT Lmm for pt. * Telephone Encounter - Nemo Hussein OSA - 11/15/2023 10:24 AM EST Please contact patient to schedule Colonoscopy. Patient would like this done at [facility]. Dx: Special screening for malignant neoplasms, colon [Z12.11] Thank you. documented in this encounter Plan of Treatment Upcoming Encounters Date Type Department Care Team (Late st Contact Info) Description 11/11/2024 10:40 AM EST Office Visit Dermatology [facility] [address] [facility] [place] [address] Ellne Allison PA-C [address] [facility] [place] [phone] 11/16/2024 9:40 AM EDT Office Visit [facility] [address] [place] [phone] Miguelangel Hernández MD [address] [place], [place] [phone] Scheduled Procedures Name Priority Associated Diagnoses Date/Ti me COLONOSCOPY FLEXIBLE PROXIMA L DIAGNOSTIC Recall Special screening for malignant neoplasms, colon Health Maintenance Due Date Last Done Comments Cologuard 1994 Sigmoidoscopy 1994 Fecal Occult Blood Test 02/21/2003 02/22/20, 02/08/2001, 04/20/2000, Additional history exists *BASELINE EKG FOR HTN 12/18/2022 Influenza Vaccine (FLU shot) (#1) 2023 06/15/2021, 06/09/2020, 07/06/2019, Additional history exists Colonoscopy 11/27/2023 11/26/2013, 11/26/2013 Colorectal Cancer Screening 11/27/2023 GFR 05/17/2024 11/15/2023, 030 03/2023, 11/10/2021, Additional history exists DTaP,Tdap,and Td Vaccines (3 - Td or Tdap) 10/16/2024 10/16/2014, 10/16/2013, 04/23/2007, Additional history exists Albumin/Creatinine Ratio 11/14/2024 024, 11/10/2021, 11/08/2020, Additional history exists CKD HGB USE SMARTSET 54699 11/14/202411/14, 11/13/2022, 11/10/2021, Additional history exists CKD PHOS USE SMARTSET 10389 11/14/20240 04/2024, 11/13/2022, 11/10/2021, Additional history exists Depression Screening 11/14/2024 11/15/2023 HbA1c 11/14/2024 11/15/2023, 0 03/2023, 11/10/2021, Additional history exists Lipid Panel 11/14/2028 11/15/2023, 0 03/2023, 11/10/2021, Additional history exists Pneumococcal Vaccine: 65+ Years Completed 10/24/2015, 10/20/2014, 06/02/2004, Additional history exists Zoster Vaccines Completed 02/17/2019, 040 12/2018, 11/04/2018, Additional history exists COVID-19 Vaccine [...] Documents on File Type Date Recorded Patient Color Strainer Expl anation Advance Directives and Living Will 11/26/2023 signed on 11/07/2023 ADVANCE DIRECTIVE / LIVING WILL Power of Websphere Portal Developer 11/26/2023 signed on 11/07/2023 POWER OF CRISIS CLINICIAN Care Teams Flooring Machine Operator Relationship Specialty Start Date End Date Miguelangel Hernández MD [address] [place] [address] PCP - General 01/29/02 documented as of this encounter
--- OUTSIDE RECORDS SUMMARY | 2024-04-13 18:38 | External Medical Summary | Summary of Care ---
Author Name Unknown Organization [facility] Address [address] [facility] [place] [address] Phone [phone] Care Team Providers Care Electro Mechanical Technologist Name Role Phone Miguelangel Hernández MD Primary Care Provider [phone] Reason for Visit * Reason Onset Date Comments Medication Refill 02/25/2024 Encounter Details Date Type Department Care Team (Late st Contact Info) Description 02/25/2024 Refill [facility] [address] [place] [address] Miguelangel Hernández MD [address] [place] [address] HTN, goal below 140/90; Dyslipidemia, goal LDL below 100 Allergies Active Allergy Reactions Criticality Noted Date Comments Other - Environmental 06/06/2004 hayfever Soy Allergy 11/26/2013 [place] Extract Hives 11/10/2021 documented as of this encounter (statuses as of 02/26/2024) Medications Medication Sig Dispensed Refills Start Date End Date Status CLARITIN 10 MG PO TABSIndications:All ergic rhinitis due to other allergen 1 TABLET DAILY 90 3 07/26/2008 Active FISH OIL 1000 MG PO CAPS 2 daily Active MENS MULTIVITAMIN PLUS PO TABS 1 daily Active VITAMIN D 1000 UNITS PO CAPSIndications:Vit castillo D deficiency 1 capsule daily 30 Cap 11 10/16/2013 Active CALCIUM 500/D 500-200 MG-UNIT PO TABSIndications:Oth er specified prophylactic or treatment measure 1 tab [...] Active Diclofenac Sodium 1 % External Gel (Voltaren)Indicatio ns:Medial epicondylitis of right elbow Apply topically to affected area 4 times a day. Apply to R elbow - - use a quarter sized dollop 350 g 1 11/29/2023 Active Refresh 1.4-0.6 % Ophthalmic Solution (polyvinyl alcohol-povidone PF) 1 Drop in the morning and 1 Drop before bedtime. Active Lisinopril-hydroCHL OROthiazide 20-25 MG Oral TabletIndications:H TN, goal below 140/90 Take 1 Tablet by mouth in the morning. 90 Tablet 3 02/26/2024 Active Atorvastatin Calcium 20 MG Oral Tablet (Lipitor)Indication s:Dyslipidemia, goal LDL below 100 Take 1 Tablet by mouth in the morning. 90 Tablet 3 02/26/2024 Active Lisinopril-hydroCHL OROthiazide 20-25 MG Oral TabletIndications:H TN, goal below 140/90 Take 1 Tablet by mouth in the morning. 90 Tablet 3 01/29/2023 4 Discontinue d(Refill) Atorvastatin Calcium 20 MG Oral Tablet (Lipitor)Indication s:Dyslipidemia, goal LDL below 100 Take 1 Tablet by mouth in the morning. 90 Tablet 3 02/12/2023 4 Discontinue d(Refill) documented as of this encounter (statuses as of 02/26/2024) Active Problems Problem Noted Date Diagnosed Date [...] as of this encounter (statuses as of 02/26/2024) Resolved Problems Problem Noted Date Diagnosed Date [...] as of this encounter (statuses as of 02/26/2024) Immunizations Name Administration Dates Next Due COVID-19 [...] on file documented as of this encounter Plan of Treatment Upcoming Encounters Date Type Department Care Team (Late st Contact Info) Description 11/11/2024 10:40 AM EST [facility] [address] [place] [address] Ellen Allison PA-C [address] [place] [phone] 11/16/2024 9:40 AM EDT [facility] [address] [facility] [place] [phone] Miguelangel Hernández MD [address] [place] [address] Health Maintenance Due Date Last Done Comments *BASELINE EKG FOR HTN 12/18/2022 COVID-19 Vaccine ( season) 2023 07/15/2023, 08/07/2021, 11/10/2020, Additional history exists Influenza Vaccine (FLU shot) (Season Ended) 2024 06/15/2021, 06/09/2020, 07/06/2019, Additional history exists GFR 05/17/2024 11/15/2023, 030 03/2023, 11/10/2021, Additional history exists DTaP,Tdap,and Td Vaccines (3 - Td or Tdap) 10/16/2024 10/16/2014, 10/16/2013, 04/23/2007, Additional history exists Albumin/Creatinine Ratio 11/14/2024 024, 11/10/2021, 11/08/2020, Additional history exists CKD HGB USE SMARTSET 34634 11/14/202411/14, 11/13/2022, 11/10/2021, Additional history exists CKD PHOS USE SMARTSET 09722 11/14/2024 030 04/2024, 11/13/2022, 11/10/2021, Additional history exists Depression Screening 11/14/2024 11/15/2023 HbA1c 11/14/2024 11/15/2023, 030 03/2023, 11/10/2021, Additional history exists Fecal Occult Blood Test Discontinued 02/22/20 02, 02/08/2001, 04/20/2000, Additional history exists Pneumococcal Vaccine: 65+ Years Completed 10/24/2015, 10/20/2014, 06/02/2004, Additional history exists Zoster Vaccines Completed 02/17/2019, 0 12/2018, 11/04/2018, Additional history exists Colonoscopy Discontinued [...] as of this encounter Visit Diagnoses Diagnosis HTN, goal below 140/90 Unspecified essential hypertension Dyslipidemia, goal LDL below 100 Other and unspecified hyperlipidemia documented in this encounter Advance Directives Documents on File Type Date Recorded Patient Glass Embosser Expl anation Advance Directives and Living Will 11/26/2023 signed on 11/07/2023 ADVANCE DIRECTIVE / LIVING WILL Power of Privacy Analyst 11/26/2023 signed on 11/07/2023 POWER OF FLOOR REFINISHER Care Teams Electro Mechanical Technologist Relationship Specialty Start Date End Date Miguelangel Hernández MD [address] [place] [address] PCP - General 01/29/02 documented as of this encounter
--- OUTSIDE RECORDS SUMMARY | 2024-04-13 18:38 | External Medical Summary | Summary of Care ---
Author Name Unknown Organization [facility] Address [address] [place] [facility] [place] [address] Phone [phone] Care Team Providers Care Sumatra Opener Name Role Phone Miguelangel Hernández MD Primary Care Provider Reason for Visit * Reason Comments eRx-Medication Refill Encounter Details Date Type Department Care Team (Late st Contact Info) Description 02/25/2024 Refill [facility] [address] [place] [address] Miguelangel Hernández MD [address] [place] [address] HTN, goal below 140/90; Dyslipidemia, goal LDL below 100 Allergies Active Allergy Reactions Criticality Noted Date Comments Other - Environmental 06/06/2004 hayfever Soy Allergy 11/26/2013 [place] Extract Hives 11/10/2021 documented as of this [...] encounter Miscellaneous Notes * Telephone Encounter - Jeannie John [facility] - 02/26/2024 8:30 AM EDT Refused Prescriptions: Disp Refills Lisinopril-hydroCHLOROthiazide 20-25 MG Or*90 Tab*3 Sig: TAKE 1TABLET EVERY MORNING.Refused By: JEANNIE JOHN for Refusal: Duplicate Request Atorvastatin Calcium 20 MG Oral Tablet (Li*90 Tab*3 Sig: TAKE 1 TABLET EVERY MORNINGRefused By: LIVIER JOHN ANNReason for Refusal: Duplicate Request documented in this encounter Plan of Treatment Upcoming Encounters Date Type Department Care Team (Late st Contact Info) Description 11/11/2024 10:40 AM EST Office Visit Dermatology [employer] [address] [place] [address] Ellen Allison PA-C [address] [facility] [place] [phone] 11/16/2024 9:40 AM EDT Office [facility] [address] [facility] [address] Miguelangel Hernández MD [address] [facility] [place] [phone] Health Maintenance Due Date Last Done Comments [...] Additional history exists CKD HGB USE SMARTSET 62184 11/14/202411/14, 11/13/2022, 11/10/2021, Additional history exists CKD PHOS USE SMARTSET 08610 11/14/20240 04/2024, 11/13/2022, 11/10/2021, Additional history exists [...] Documents on File Type Date Recorded Patient Stock Layer Expl anation Advance Directives and Living Will 11/26/2023 signed on 11/07/2023 ADVANCE DIRECTIVE / LIVING WILL Power of Social Contact Worker 11/26/2023 signed on 11/07/2023 POWER OF ROVING CAN TENDER Care Teams Sumatra Opener Relationship Specialty Start Date End Date Miguelangel Hernández MD [address] [place] [address] PCP - General 01/29/02 documented as of this encounter
--- OUTSIDE RECORDS SUMMARY | 2024-04-13 18:38 | External Medical Summary | Summary of Care ---
Author Name Unknown Organization [facility] [address] [address] Phone [phone] Care Team Providers Care Cardiac Cath Tech Name Role Phone Miguelangel Hernández MD Primary Care Provider [phone] Reason for Visit * Auth/Cert Specialty Diagnoses / Procedures Referred By Contac t Referred To Contact Diagnoses Special screening for malignant neoplasms, colon Special screening for malignant neoplasms, colon [Z12.11] Procedures COLONOSCOPY, DIAGNOSTIC (RECTUM) COLONOSCOPY FLEXIBLE PROXIMAL DIAGNOSTIC COLONOSCOPY FLEXIBLE PROXIMAL DIAGNOSTIC Pranay Gordon MD [address] [place] [address] [facility] [address] [employer] [place] [phone] Referral ID Status Reason Start Date Expiration Date Visits Re quested Visits Authorized [id number] Encounter Details Date Type Department Care Team (Latest Contact Info) Description 02/19/2024 12:05 PM EDT - 02/19/2024 2:34 PM EDT Hospital Encounter [facility], Endoscopy [facility] [address] [place] [phone] Pranay Gordon MD [address] [place] [address] Colonoscopy Discharge Disposition: Home - Self Care Allergies Active Allergy Reactions Criticality Noted Date Comments Other - Environmental 06/06/2004 hayfever Soy Allergy 11/26/2013 [place] Extract Hives 11/10/2021 documented as of this encounter (statuses as of 02/20/2024) Medications Medication Sig Dispensed Refills Start Date [...] BY MOUTH NEEDED FOR ED 11/03/2019 Active Lisinopril-hydroCHLO ROthiazide 20-25 MG Oral [...] morning and 1 Drop before bedtime. Active documented as of this encounter (statuses as of 02/20/2024) Active Problems Problem Noted Date Diagnosed Date [...] as of this encounter (statuses as of 02/20/2024) Resolved Problems Problem Noted Date Diagnosed Date [...] as of this encounter (statuses as of 02/20/2024) Immunizations Name Administration Dates Next Due COVID-19 [...] Sign Reading Time Taken Comments Blood Pressure 144/70 02/19/2024 2:21 PM EDT Pulse 87 02/19/2024 2:21 PM EDT Temperature 36.4 C (97.5 F) 02/19/2024 2:05 PM ED T Respiratory Rate 18 02/19/2024 2:21 PM EDT Oxygen Saturation 99% 02/19/2024 2:21 PM EDT Inhaled Oxygen Concentration - - Weight 86.2 kg (190 lb) 02/11/2024 7:42 AM EDT Height 177.8 cm (5' 10") 02/11/2024 7:42 AM EDT Body Mass Index 27.26 02/11/2024 7:42 AM EDT documented in this encounter H&P Notes * Pranay Gordon MD - 02/19/2024 1:28 PM EDT Endoscopy Pre-Procedure Assessment Name: Gabriel Goyal Date: 02/19/2024 Time: 1:28 PM Procedure: Colonoscopy; with Indication(s) of average risk screening Endoscopy Pre-Procedure Assessment: Prior to the procedure, the patient was identified. The patient's history, medications and allergies were reviewed as per the Anesthesia Assessment. The patient is competent. The risks and benefits of the proposed procedure and the planned sedation were discussed with the patient. All questions were answered and informed consent for the procedure was obtained. This patient has undergone a preprocedural evaluation. A determination has been made to proceed with the planned procedure under [facility] procedural guidelines and the [facility] Non-Emergent, Elective Medical Services and Treatment Recommendations (published on 12-15-19). The community and hospital prevalence of COVID-19 has been discussed as well as this patient's specific risks associated with SARS-CoV-19 infection. Based upon the clinical acuity and patient-specific care considerations, this procedure is deemed a Tier II - Intermediate acuity treatment or service with either progression or the threat of progressive disease related to the delay in treatment. Not providing the service has the potential for increasing morbidity or mortality. Temp 37.1 C (98.7 F) (Tympanic) | Ht 1.778 m (5' 10") | Wt 86.2 kg (190 lb) | BMI 27.26 kg/m | BSA 2.06 m Prior to Admission medications Medication Sig Last Dose Discont. Refresh 1.4-0.6 % Ophthalmic Solution (polyvinyl alcohol-povidone PF) 1 Drop in the morning and 1 Drop before bedtime. 02/11/2024 Fluticasone Propionate 50 MCG/ACT Nasal Suspension (Flonase) Administer 2 Sprays into each nostril in the morning. Past Week Atorvastatin Calcium 20 MG Oral Tablet (Lipitor) Take 1 Tablet by mouth in the morning. 02/19/2024 Lisinopril-hydroCHLOROthiazide 20-25 MG Oral Tablet Take 1 Tablet by mouth in the morning. 02/19/2024 Sildenafil Citrate 100 MG Oral Tablet TAKE ONE TABLET BY MOUTH NEEDED FOR ED Unknown CALCIUM 500/D 500-200 MG-UNIT PO TABS 1 tab daily 02/19/2024 VITAMIN D 1000 UNITS PO CAPS 1 capsule daily Past Week FISH OIL 1000 MG PO CAPS 2 daily Past Week MENS MULTIVITAMIN PLUS PO TABS 1 daily Past Week CLARITIN 10 MG PO TABS 1 TABLET DAILY 02/19/2024 Diclofenac Sodium 1 % External Gel (Voltaren) Apply topically to affected area 4 times a day. Applyto R elbow - - use a quarter sized dollop Over 30 Days White Petrolatum-Mineral Oil (LUBRICATING) 83-15 % OINT Instill into both eyes every night at bedtime. Patient not taking: Reported on 02/11/2024 Not Taking Review of patient's allergies indicates: Allergen Reactions Other - Environmental hayfever Soy Allergy [place] Extract Hives Physical Exam: Mental Status Examination: alert and oriented. General: nad, calm Airway Examination: normal oropharyngeal airway and neck mobility. CV: no JVD Respiratory Examination: symmetrical excursion Abd:soft/ntd ASA Grade: III - A patient with severe systemic disease. After reviewing the risks and benefits, the patient was deemed in satisfactory condition to undergothe procedure. The anesthesia plan was to use general anesthesia. Pranay Gordon MD 02/19/2024 documented in this encounter Procedure Notes * Miguelangel Hernández MD - 02/19/2024 1:34 PM EDTAssociated Order(s): COLONOSCOPY [facility] Patient Name: Gabriel Goyal Procedure Date: 02/19/2024 1:34 PM Date of : 1950 Admit Type: Outpatient Note Status: Finalized Date of : 1950 Admit Type: Outpatient Age: 74 Room: Endo 2 Gender: Male Note Status: Finalized Procedure: Colonoscopy Indications: Screening for colorectal malignant neoplasm Providers: Pranay Gordon MD (Doctor) Referring MD: Miguelangel Hernández MD (Referring MD) Medicines: Propofol per Anesthesia Complications: No immediate complications. Estimated blood loss: None. Procedure: Pre-Anesthesia Assessment: - - Prior to the procedure, a History and Physical was performed, patient medications, allergies and sensitivities were reviewed. The patient's tolerance of previous anesthesia was reviewed. See [facility] for further details. - The risks, benefits, and alternatives of the procedure including the sedation options and risks were discussed with the patient. All questions were answered and informed consent was obtained. - Patient identification and proposed procedure were verified prior to the procedure by the physician and the nurse. The procedure was verified in the procedure room. - See [facility] for documentation of the pre-procedure assessment including ASA status. - After I obtained informed consent, the scope was carefully and meticulously passed under direct vision only when the lumen was definitively identified. CO2 insufflation was utilized throughout the entire procedure exclusively. After I obtained informed consent, the scope was passed under direct vision. All instruments were visually inspected immediately before and after removal from the patient to ensure they are fully intact. Throughout the procedure, the patient's blood pressure, pulse, and oxygen saturations were monitored continuously. The colonoscopy was performed without difficulty. The patient tolerated the procedure well. The quality of the bowel preparation was good. The PCF-180AL Colonoscope ([id number]) was introduced through the anus and advanced to the cecum, identified by appendiceal orifice and ileocecal valve. Findings & Specimens: Multiple small-mouthed diverticula were found in the sigmoid colon. Internal hemorrhoids were found during retroflexion. The exam was otherwise without abnormality on direct and retroflexion views. Impression: - Diverticulosis in the sigmoid colon. - Internal hemorrhoids. - The examination was otherwise normal on direct and retroflexion views. - No specimens collected. Recommendation: - Discharge patient to home (with escort). - Repeat colonoscopy is not recommended for screening purposes. - Return to referring physician as previously scheduled. - Patient has a contact number available for emergencies. The signs and symptoms of potential delayed complications were discussed with the patient. Return to normal activities tomorrow. Written discharge instructions were provided to the patient. Pranay Gordon MD 02/19/2024 2:03:23 PM This report has been signed electronically. documented in this encounter Nursing Notes * Marlin Webber RN - 02/19/2024 2:29 PM EDT Patient is alert, pain free, passing flatus and tolerating po fluids prior to discharge. Patient has been visited by Dr. Gordon. Patient has received and demonstrates understanding of discharge instructions. Patient is transported via w/c to private auto accompanied by endo staff. * Marlin Webber RN - 02/19/2024 2:[address] Rousseau in with pt discussing results of procedure. Pt sitting up tolerating PO fluids. * Marlin Webber RN - 02/19/2024 2:12 PM EDT Received pt, sleeping, VSS, CM shows NSR. Report given by Evette ADAIR. * Marlin Webber RN - 02/19/2024 2:10 PM EDT Pt sitting up tolerating PO fluids. * Tomer Aviles RN - 02/19/2024 2:01 PM EDT See anesthesia record for medication administered during procedure. Tomer Aviles RN Pt ángela colonoscopy well. Abd pressure applied to assist w/ advancement of the scope. Abd soft post proc. To recovery lying on L side. Pre cleaning of scope at the bedside started by feed mill lab technician. * Jessenia Pratt RN - 02/19/2024 12:54 PM EDT The following pt discharge instructions reviewed with pt prior to prodedure: No driving today. No alcohol today. No signing of legal documents. Rest as much as possible today and can return to normal activities tomorrow. No operating any heavy equipment today. Diet as tolerated. Pt verbalized understanding. Pt prepped documented in this encounter Plan of Treatment Upcoming Encounters Date Type Department Care Team (Late st Contact Info) Description 11/11/2024 10:40 AM EST [facility] [place] [address] [place] [address] Ellen Allison PA-C [address] [place] [phone] 11/16/2024 9:40 AM EDT [facility] [address] [phone] Miguelangel Hernández MD [address] [place] [address] Health Maintenance Due Date Last Done Comments [...] Additional history exists CKD HGB USE SMARTSET 82978 11/14/202411/14, 11/13/2022, 11/10/2021, Additional history exists CKD PHOS USE SMARTSET 21709 11/14/2024 030 04/2024, 11/13/2022, 11/10/2021, Additional history exists Depression Screening 11/14/2024 11/15/2023 HbA1c 11/14/2024 11/15/2023, 03/2023, 11/10/2021, Additional history exists Fecal Occult Blood Test Discontinued 02/22/20 02, 02/08/2001, 04/20/2000, Additional history exists Pneumococcal Vaccine: 65+ Years Completed 10/24/2015, 10/20/2014, 06/02/2004, Additional history exists Zoster Vaccines Completed 02/17/2019, 04/0 12/2018, 11/04/2018, Additional history exists Colonoscopy Discontinued 02/19/2024, 11/08, 11/26/2013 Colorectal Cancer Screening Discontinued Cologuard Discontinued GARDASIL-HPV [...] Not on filedocumented as of this encounter Procedures Procedure Name Priority Date/Time Associated Diagnosis Comments COLONOSCOPY 02/19/2024 1:34 PM EDT documented in this encounter Results * COLONOSCOPY (02/19/2024 1:34 PM EDT) 02/19/2024 1:34 PM EDT Narrative Procedure Note Miguelangel Hernández MD - 02/19/2024 1:34 PM EDT [facility] Patient Name: Gabriel Goyal Procedure Date: 02/19/2024 1:34 PM Date of : 1950 Admit Type: Outpatient Note Status:Finalized Date of : 1950 Admit Type: Outpatient Age: 74 Room: [facility] 2 Gender: Male Note Status: Finalized Procedure: Colonoscopy Indications: Screening for colorectal malignant neoplasm Providers: Pranay Gordon MD (Doctor) Referring MD: Miguelangel Hernández MD (Referring MD) Medicines: Propofol per Anesthesia Complications: No immediate complications. Estimated blood loss:None. Procedure: Pre-Anesthesia Assessment: - - Prior to the procedure, a History and Physicalwas performed, patient medications, allergies and sensitivities were reviewed. Thepatient's tolerance of previous anesthesia was reviewed. See Epic for furtherdetails. - The risks, benefits, and alternatives of theprocedure including the sedation options and risks were discussed with the patient.All questions were answered and informed consent was obtained. - Patient identification and proposed procedurewere verified prior to the procedure by the physician and the nurse. The procedure wasverified in the procedure room. - See [facility] for documentation of the pre-procedureassessment including ASA status. - After I obtained informed consent, the scope wascarefully and meticulously passed under direct vision only when the lumen wasdefinitively identified. CO2 insufflation was utilized throughout the entire procedureexclusively. After I obtained informed consent, the scope waspassed under direct vision. All instruments were visually inspected immediatelybefore and after removal from the patient to ensure they are fully intact. Throughout the procedure, the patient's bloodpressure, pulse, and oxygen saturations were monitored continuously. The colonoscopy wasperformed without difficulty. The patient tolerated the procedure well. The qualityof the bowel preparation was good. The PCF-180AL Colonoscope ([id number]) was introducedthrough the anus and advanced to the cecum, identified by appendiceal orifice andileocecal valve. Findings & Specimens: Multiple small-mouthed diverticula were found in the sigmoid colon. Internal hemorrhoids were found during retroflexion. The exam was otherwise without abnormality on direct and retroflexionviews. Impression: - Diverticulosis in the sigmoid colon. - Internal hemorrhoids. - The examination was otherwise normal on directand retroflexion views. - No specimens collected. Recommendation: - Discharge patient to home (with escort). - Repeat colonoscopy is not recommended forscreening purposes. - Return to referring physician as previouslyscheduled. - Patient has a contact number available foremergenes. The signs and symptoms of potential delayed complications were discussed withthe patient. Return to normal activities tomorrow. Written discharge instructionswere provided to the patient. Pranay Gordon MD 02/19/2024 2:03:23 PM This report has been signed electronically. Miguelangel Hernández MD [facility] documented in this encounter Administered Medications Inactive Administered Medications - up to 3 most recent administrations Medication Order MAR Action Action Date Dose Rate Site Acetaminophen (Tylenol) tab 650 mg 650 mg, Oral, PRN Pain, Mild, Starting on Sat02/19/24 at 1412, Until Sat02/19/24 at 1834, For 1 dose, Maximum of 4 grams (4000 mg) per day., Post-op isolyte-S pH 7.4 infusion Intravenous, at 100 mL/hr, Plasma-LYTE 148, isolyte-S, and isolyte-S pH 7.4 are considered equivalent - including for MAR barcode scanning., CONTINUOUS, Starting on Sat02/19/24 at 1300, Until Sat02/19/24 at 1834, Pre-Op Restarted 02/19/2024 2:05 PM EDT Continue from Pre-Op 02/19/2024 1:31 PM EDT 100 mL/hr New Bag 02/19/2024 12:53 PM EDT 100 mL/hr documented in this encounter Active and Recently Administered Medications Times are shown in EDT. Continuous Medication Order 02/17/2024 02/18/2024 02/19/2024 isolyte-S pH 7.4 infusion Intravenous, at 100 mL/hr, Plasma-LYTE 148, isolyte-S, and isolyte-S pH 7.4 are considered equivalent - including for MAR barcode scanning., CONTINUOUS, Starting on Sat02/19/24 at 1300, Until Sat02/19/24 at 1834, Pre-Op 1253 (New Bag - Prov ider: Jessenia Pratt RN)1331 (Continue from Pre-Op - Provider: Evette Doan CRNA)1404 (Paused - Provider: Evette Doan CRNA - Comment: Switch to gravity)1405 (Restarted - Provider: Evette Doan CRNA) PRN Medication Order 02/17/2024 02/18/2024 02/19/2024 Acetaminophen (Tylenol) tab 650 mg 650 mg, Oral, PRN Pain, Mild, Starting on Sat02/19/24 at 1412, Until Sat02/19/24 at 1834, For 1 dose, Maximum of 4 grams (4000 mg) per day., Post-op documented in this encounter Advance Directives Documents on File Type Date Recorded 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
--- OUTSIDE RECORDS SUMMARY | 2024-04-13 18:39 | External Medical Summary | Summary of Care ---
Author Name Unknown Organization [facility] Address [address] [place] [address] Phone [phone] Care Team Providers Care Seating Captain Name Role Phone Miguelangel Hernández MD Primary Care Provider [phone] Reason for Referral * Ancillary Services (Within 30 days (routine)) - Pending Review Specialty Diagnoses / Procedures Referred By Estefani goins Referred To Contact Gastroenterology Diagnoses Special screening for malignant neoplasms, colon Miguelangel Hernández MD [address] [place] [address] Referral ID Status Reason Start Date Expiration Date Visits Requested Visits Authorized [id number] Pending Review Ancillary Services Required 11/15/[phone] Question Answer Referral Priority Within 30 days (routine) Where should this appointment be scheduled? [facility] Comments ALERT: Do not order for pediatric patients (18 years or younger). Cancel off screen and order PEDS GASTROENTEROLOGY CONSULT (Type: 1 visit only-Evaluate and Treat) The following Pt. Instructions are available: - Gastro Colonoscopy Prep Instructions [[id number]] - Gastro Colonoscopy Prep Instructions (Nigerian Version) [[id number]] Go to the Pt. Instructions section within the Visit Navigator to access. Colonoscopy ASGE Guidelines: Average risk screening (begin at age 50, 10 year intervals) ADDITIONAL INFORMATION 1. Is the patient on Coumadin? No 2. Is the patient on Pradaxa? No Reason for Visit * Reason Comments Physical-Exam Patient is here toda y for a yearly physical. Patient states no concerns. Patient did fast so if he needs labs ordered. Encounter Details Date Type Department Care Team (Late st Contact Info) Description 11/15/2023 9:40 AM EST Office Visit [facility], [place] [address] [place] [facility] [place] [address] Miguelangel Hernández MD [address] [facility] [place] [id number] HTN, goal below 140/90*; Need for hepatitis C screening test; Special screening for malignant neoplasms, colon; Screening for depression; Malignant neoplasm of prostate (HCC); Stage 3a chronic kidney disease (HCC); Dyslipidemia, goal LDL below 100; Prediabetes Allergies Active Allergy Reactions Criticality Noted Date Comments Other - Environmental 06/06/2004 hayfever Soy Allergy 11/26/2013 [place] Extract Hives 11/10/2021 documented as of this encounter (statuses as of 11/15/2023) Medications Medication Sig Dispensed Refills Start Date [...] as of this encounter (statuses as of 11/15/2023) Active Problems Problem Noted Date Diagnosed Date [...] as of this encounter (statuses as of 11/15/2023) Resolved Problems Problem Noted Date Diagnosed Date [...] as of this encounter (statuses as of 11/15/2023) Immunizations Name Administration Dates Next Due COVID-19 [...] Date Recorded PHQ Adult Total Score 0 11/13/2022 Hunger Vital Sign Answer Date Recorded Worried [...] Sign Reading Time Taken Comments Blood Pressure 112/62 11/15/2023 9:38 AM EST Pulse 73 11/15/2023 9:38 AM EST Temperature 36.2 C (97.1 F) 11/15/2023 9:38 AM ES T Respiratory Rate 16 11/15/2023 9:38 AM EST Oxygen Saturation 96% 11/15/2023 9:38 AM EST Inhaled Oxygen Concentration - - Weight 89.4 kg (197 lb 3.2 oz) 11/15/2023 9:38 A M EST Height 177.6 cm (5' 9.92") 11/15/2023 9:38 AM ES T Body Mass Index 28.36 11/15/2023 9:38 AM EST documented in this encounter Progress Notes * Miguelangel Hernández MD - 11/15/2023 9:44 AM EST Subjective: Gabriel Goyal is a 73 year old male. Chief Complaint Patient presents with Physical-Exam Patient is here today for a yearly physical. Patient states no concerns. Patient did fast so if he needs labs ordered. HPI: 73-year-old seen today for annual exam. Past medical history that includes prostate cancer. Isra follows with Dr. Darren Arellano in Urology. Last PSA was unchanged. Also history hypertension and of hyperlipidemia. Now also is followed by optometry for dry eyes. He requests a [facility] indicatinghis [facility] of [facility] 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 Remains very active. 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 No exertional chest pain or shortness of breath or chronic cough. No trouble swallowing. No regularheartburn. No difficulty with bowel movements. He has nocturia times 1-2. 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 Enthesopathy of hip M76.899 Other allergic rhinitis J30.89 ADVANCE DIRECTIVE INFORMATION History of basal cell carcinoma Vitamin D deficiency E55.9 Dyslipidemia, goal LDL below 100 E78.5 Personal history of malignant neoplasm of prostate Z85.46 Malignant neoplasm of prostate (HCC) C61 Stage 3a chronic kidney disease N18.31 Prediabetes R73.03 Current Outpatient Medications Medication Sig Dispense Refill CLARITIN 10 MG PO TABS 1 TABLET DAILY 90 3 FISH OIL 1000 MG PO CAPS 2 daily MENS MULTIVITAMIN PLUS PO TABS 1 daily VITAMIN D 1000 UNITS PO CAPS 1 capsule daily 30 Cap 11 CALCIUM 500/D 500-200 MG-UNIT PO TABS 1 tab daily 1 Tab 0 White Petrolatum-Mineral Oil (LUBRICATING) 83-15 % OINT Instill into both eyes every night at bedtime. 1 Tube 5 Sildenafil Citrate 100 MG Oral Tablet TAKE ONE TABLET BY MOUTH NEEDED FOR ED Lisinopril-hydroCHLOROthiazide 20-25 MG Oral Tablet Take 1 Tablet by mouth in the morning. 90 Tablet 3 Atorvastatin Calcium 20 MG Oral Tablet (Lipitor) Take 1 Tablet by mouth in the morning. 90 Tablet 3 Fluticasone Propionate 50 MCG/ACT Nasal Suspension (Flonase) Administer 2 Sprays into each nostril in the morning. 48 g 2 No current facility-administered medications for this visit. Review of patient's allergies indicates: Allergen Reactions Other - Environmental hayfever Soy Allergy [place]a Extract Hives Objective: BP 112/62 | Pulse 73 | Temp 36.2 C (97.1 F) (Tympanic) | Resp 16 | Ht 1.776 m (5' 9.92") | Wt 89.4 kg (197 lb 3.2 oz) | SpO2 96% | BMI 28.36 kg/m | BSA 2.1 m Physical Exam: CONST: alert, pleasant, no acute distress HEAD: normocephalic, atraumatic NECK: supple, soft, no adenopathy EARS: canals normal, TMs normal Eyes - PERRLA, EOM'I OROPHARYNX: clear, no swelling or erythema, moist CV: regular rate and rhythm, no murmur CHEST: clear to auscultation bilaterally, no rales or wheezing ABD: soft, non tender, non distended, no masses or hepatosplenomegaly EXT: no edema, no joint swelling or deformities, NEURO: AAOx3, no gross focal deficits, cerebellar signs normal, affect appropriate MENTAL STATUS: no evidence of thought disorder, no delusional thought, no evidence of paranoia, thought is non-tangential. SKIN: no rash or significant lesions ASSESSMENT/PLAN: Special screening for malignant neoplasms, colon - it has been 10 years since he had last colonoscopy will get him scheduled for repeat colonoscopy Screening for depression Malignant neoplasm of prostate (HCC) - no evidence recurrence. Stage 3a chronic kidney disease (HCC) -His GFR over the last 3-4 years have not changed in remain in the 50's. Check comprehensive metabolic panel today as well as urine for microalbumin Hypertension-controlled. Continue lisinopril/hydrochlorothiazide 20/25 1 daily. Check comprehensivemetabolic panel and urine for microalbumin Dyslipidemia-check lipid profile. Continue atorvastatin 20 mg daily See again 1 year Miguelangel Hernández MD documented in this encounter Nursing Notes * Charlee Jarrett LPN - 11/15/2023 9:42 AM EST The patient has been properly identified by confirmation of name and date of . Chief Complaint Patient presents with Physical-Exam Patient is here today for a yearly physical. Patient states no concerns. Patient did fast so if he needs labs ordered. documented in this encounter Plan of Treatment Upcoming Encounters Date Type Department Care Team (Late st Contact Info) Description 11/11/2024 10:40 AM EST Office Visit Dermatology [facility] [address] [place] [address] Ellen Allison PA-C [address] [place] [phone] 11/16/2024 9:40 AM EDT Office Visit [facility] [address] [place] [phone] Miguelangel Hernández MD [address] [place] [address] Pending Results Name Type Priority Associated Diagnoses Date /Time HEPATITIS C ANTIBODY SCREEN WITH PROGRESSION TO HEPATITIS C RNA QUANTITATIVE Lab Routine Need for hepatitis C screening test 11/15/2023 10:34 AM EST HGB Lab Routine Stage 3a chronic kidney disease (HCC) 11/15/2023 10:34 AM EST PHOSPHORUS Lab Routine Stage 3a chronic kidney disease (HCC) 11/15/2023 10:34 AM EST Scheduled Orders Name Type Priority Associated Diagnoses Orde r Schedule HEPATITIS C ANTIBODY SCREEN WITH PROGRESSION TO HEPATITIS C RNA QUANTITATIVE Lab Routine Need for hepatitis C screening test Expected: 11/15/2023 (Approximate), Expires: 12/15/2024 HGB Lab Routine Stage 3a chronic kidney disease (HCC) Expected: 11/15/2023, Expires: 11/14/2024 Scheduled Procedures Name Priority Associated Diagnoses Date/Ti me COLONOSCOPY FLEXIBLE PROXIMA L DIAGNOSTIC Recall Special screening for malignant neoplasms, colon Scheduled Referrals Name Type Priority Associated Diagnoses Orde r Schedule COLONOSCOPY, GI REFERRAL OP Referral Within 30 days (routine) Special screening for malignant neoplasms, colon Ordered: 11/15/2023 Health Maintenance Due Date Last Done Comments Hepatitis C Screening 1967 Cologuard 1994 Sigmoidoscopy 1994 Fecal Occult Blood Test 02/21/2003 02/22/20 02, 02/08/2001, 04/20/2000, Additional history exists Albumin/Creatinine Ratio 11/10/2022 022, 11/08/2020, 11/05/2019, Additional history exists *BASELINE EKG FOR HTN 12/18/2022 Influenza Vaccine (FLU shot) (#1) 2023 06/15/2021, 06/09/2020, 07/06/2019, Additional history exists GFR 05/16/2023 11/13/2022, 030 12/2021, 11/08/2020, Additional history exists CKD HGB USE SMARTSET 70996 11/14/202311/13, 11/10/2021, 11/08/2020, Additional history exists CKD PHOS USE SMARTSET 41878 11/14/2023 03/0 03/2023, 11/10/2021, 11/08/2020, Additional history exists HbA1c 11/14/2023 11/13/2022, 03/0 12/2021, 11/08/2020 Colonoscopy 11/27/2023 11/26/2013, 11/26/2013 Colorectal Cancer Screening 11/27/2023 DTaP,Tdap,and Td Vaccines (3 - Td or Tdap) 10/16/2024 10/16/2014, 10/16/2013, 04/23/2007, Additional history exists Depression Screening 11/14/2024 11/15/2023 Lipid Panel 11/14/2027 11/13/2022, 03/0 12/2021, 11/08/2020, Additional history exists Pneumococcal Vaccine: 65+ Years Completed 10/24/2015, 10/20/2014, 06/02/2004, Additional history exists Zoster Vaccines Completed 02/17/2019, 04/0 12/2018, 11/04/2018, Additional history exists COVID-19 Vaccine [...] encounter Visit Diagnoses Diagnosis HTN, goal below 140/90- Primary Unspecified essential hypertension Need for hepatitis C screening test Special screening examination for other specified viral diseases Special screening for malignant neoplasms, colon Screening for depression Malignant neoplasm of prostate (HCC) Malignant neoplasm of prostate Stage 3a chronic kidney disease (HCC) Dyslipidemia, goal LDL below 100 Other and unspecified hyperlipidemia Prediabetes Other abnormal glucose documented in this encounter Care Teams Seating Captain Relationship Specialty Start Date End Date Miguelangel Hernández MD [address] [place] [address] PCP - General 01/29/02 documented as of this encounter
--- OUTSIDE RECORDS SUMMARY | 2024-04-13 18:39 | External Medical Summary ---
Author Name Unknown Address Unknown Organization [id number]:[facility] [place] - [address] [place] [id number] Laboratory Report Ordering Provider Test Date Status ÁNGEL FUENTES 11/15/2023 10:34:24 Final Observation Date Value Abnormality Reference (Units ) Status Triglyceride 11/15/2023 10:34:24 215 Above high normal <=174 (mg/dL) Final Triglyceride Reference Range s (mg/dL):
<150 Acceptable
150-174 Borderline high
175-499 High
>=500 Very high Cholesterol 11/15/2023 10:34:24 168 <200 (mg /dL) Final Total Cholesterol Reference Ranges (mg/dL):
<200 Desirable
200-239 Borderline high
>=240 High HDL 11/15/2023 10:34:24 39 Below low normal >39 (mg/dL) Final HDL Cholesterol Reference Ra nges (mg/dL):
>=60 High (Desirable)
<50 Low (Undesirable) For Females
<40 Low (Undesirable) For Males NON-HDL CHOLESTEROL 11/15/2023 10:34:24 129 <=159 (mg/dL) Final Non-HDL Cholesterol Referenc e Range (mg/dL):
<100 Target level for high risk ASCVD patient
<130 Optimal for general population
130-159 Near optimal for general population
160-189 Borderline High
190-219 High
>=220 Very High Performing Location [facility] [place] - [address] [place] [address]
--- OUTSIDE RECORDS SUMMARY | 2024-04-13 18:39 | External Medical Summary ---
Author Name Unknown Address Unknown Organization [id number]:[facility] [place] - [address] [place] [address] Laboratory Report Ordering Provider Test Date Status ÁNGEL FUENTES 11/15/2023 10:34:24 Final Observation Date Value Abnormality Reference (Units ) Status LDL, (direct) 11/15/2023 10:34:24 89 <=129 (mg/dL) Final LDL Cholesterol Reference Ra nges (mg/dL):
<70 Target level for high risk ASCVD patient
<100 Optimal for general population
100-129 Near optimal for general population
130-159 Borderline high
160-189 High
>=190 Very high Performing Location [facility] - [address] [place] [address]
--- OUTSIDE RECORDS SUMMARY | 2024-04-13 18:39 | External Medical Summary | Summary of Care ---
Author Name Unknown Organization [facility] Address [address] [facility] [address] Phone [phone] Care Team Providers Care Deputy Coroner Name Role Phone Miguelangel Hernández MD Primary Care Provider Reason for Visit * Reason Comments Injury Pt states that he bu mp in R arm when he was in the and now he has an issue with it Encounter Details Date Type Department Care Team (Latest Contact Info) Description 11/29/2023 12:40 PM EDT Office Visit [facility] [address] [place] [address] Isa Waters, PA-C [address] [place], [place] [phone] Medial epicondylitis of right elbow* Allergies Active Allergy Reactions Criticality Noted Date Comments Other - Environmental 06/06/2004 hayfever Soy Allergy 11/26/2013 [place] Extract Hives 11/10/2021 documented as of this encounter (statuses as of 11/29/2023) Medications Medication Sig Dispensed Refills Start Date End Date Status CLARITIN 10 MG PO TABSIndications:Aller gic rhinitis due to other allergen 1 TABLET DAILY 90 3 07/26/2008 Active FISH OIL 1000 MG PO CAPS 2 daily 0 Active MENS MULTIVITAMIN PLUS PO TABS 1 daily 0 Active VITAMIN D 1000 UNITS PO CAPSIndications:Vitam in D deficiency 1 capsule daily 30 Cap 11 10/16/2013 Active CALCIUM 500/D 500-200 MG-UNIT PO TABSIndications:Other specified prophylactic or treatment measure 1 tab daily 1 Tab 0 10/20/2014 Active White Petrolatum-Mineral Oil (LUBRICATING) 83-15 % OINTIndications:Dry eyes, bilateral Instill into both eyes every night at bedtime. 1 Tube 5 11/03/2018 Active Sildenafil Citrate 100 MG Oral Tablet TAKE ONE TABLET BY MOUTH NEEDED FOR ED 0 11/03/2019 Active Lisinopril-hydroCHLOR Othiazide 20-25 MG Oral TabletIndications:HTN , goal below 140/90 Take 1 Tablet by mouth in the morning. 90 Tablet 3 01/29/2023 Active Atorvastatin Calcium 20 MG Oral Tablet (Lipitor)Indications: Dyslipidemia, goal LDL below 100 Take 1 Tablet by mouth in the morning. 90 Tablet 3 02/12/2023 Active Fluticasone Propionate 50 MCG/ACT Nasal Suspension (Flonase) Administer 2 Sprays into each nostril in the morning. 48 g 2 05/01/2023 Active Diclofenac Sodium 1 % External Gel (Voltaren)Indications :Medial epicondylitis of right elbow Apply topically to affected area 4 times a day. Apply to R elbow - - use a quarter sized dollop 350 g 1 11/29/2023 Active documented as of this encounter (statuses as of 11/29/2023) Active Problems Problem Noted Date Diagnosed Date [...] as of this encounter (statuses as of 11/29/2023) Resolved Problems Problem Noted Date Diagnosed Date [...] as of this encounter (statuses as of 11/29/2023) Immunizations Name Administration Dates Next Due COVID-19 [...] Sign Reading Time Taken Comments Blood Pressure 118/64 11/29/2023 12:42 PM EDT Pulse 92 11/29/2023 12:42 PM EDT Temperature 36.4 C (97.5 F) 11/29/2023 12:42 PM E DT Respiratory Rate 16 11/29/2023 12:42 PM EDT Oxygen Saturation 97% 11/29/2023 12:42 PM EDT Inhaled Oxygen Concentration - - Weight 89.6 kg (197 lb 9.6 oz) 11/29/2023 12:42 PM EDT Height 175.3 cm (5' 9") 11/29/2023 12:42 PM EDT Body Mass Index 29.18 11/29/2023 12:42 PM EDT documented in this encounter Progress Notes * Isa Waters PA-C - 11/29/2023 12:40 PM EDT Images from the original note were not included. History of Present Illness Gabriel Goyal is a 73 year old male that presents for Injury (Pt states that he bump in R arm when he was in the and now he has an issue with it) Here for R arm pain Years ago when he was in the , he had a canpoy come down on his arm Fast forward, now has muscle build up medially at the elbow Sometimes it is sore I there. 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 Butler snot bother him a lot Physical Exam Vitals: 11/29/23 1242 Temp: 36.4 C (97.5 F) Pulse: 92 Resp: 16 SpO2: 97% BP: 118/64 BMI: 29.17 BP Readings from Last 3 Encounters: 11/29/23 118/64 11/15/23 112/62 11/13/22 132/68 Wt Readings from Last 3 Encounters: 11/29/23 89.6 kg (197 lb 9.6 oz) 11/15/23 89.4 kg (197 lb 3.2 oz) 11/13/22 88.5 kg (195 lb) BMI Readings from Last 3 Encounters: 11/29/23 29.18 kg/m 11/15/23 28.36 kg/m 11/13/22 27.98 kg/m Ht Readings from Last 3 Encounters: 11/29/23 1.753 m (5' 9") 11/15/23 1.776 m (5' 9.92") 11/13/22 1.778 m (5' 10") General: alert, healthy, and no distress Head: Normocephalic, No masses, lesions, tenderness or abnormalities Extremities: less than 2 second capillary refill, no joint deformities, effusion, or inflammation, R elbow - neg varus and valgus, neg tinesl at the wrist and elbow, prominent medial epicondyle nd soft tissue swelling, no crepitus or defect ttp Skin: skin color, texture, turgor are normal, no rashes or significant lesions Assessment and Plan Medial epicondylitis of right elbow (Primary) - Diclofenac Sodium 1 % External Gel (Voltaren); Apply topically to affected area 4 times a day. Apply to R elbow - - use a quarter sized dollop Hep Ice after activity Wrap-Up He defers pt Will try topical as well as hep and icing after activity. Time: I spent a total of 10-19 minutes (exact time 10 mins) on the date of service in preparation, delivery, and documentation of the care provided to Gabriel Goyal excluding any time spent in the performance of separately billed services. Isa Waters PA-C 11/29/2023 12:55 PM documented in this encounter Nursing Notes * Monica Covarrubias CCMA - 11/29/2023 12:42 PM EDT Gabriel Goyal is a 73 year old male who presents today for Chief Complaint Patient presents with Injury Pt states that he bump in R arm when he was in the and now he has an issue with it documented in this encounter Plan of Treatment Upcoming Encounters Date Type Department Care Team (Late st Contact Info) Description 11/11/2024 10:40 AM EST Office Visit [facility] [address] [place], [place] [address] Ellen Allison PA-C [address] [place] [phone] 11/16/2024 9:40 AM EDT Office Visit [facility] [address] [facility] [phone] Miguelangel Hernández MD [address] [place] [address] Scheduled Procedures Name Priority Associated Diagnoses Date/Ti [...] Additional history exists CKD HGB USE SMARTSET 00746 11/14/202411/14, 11/13/2022, 11/10/2021, Additional history exists CKD PHOS USE SMARTSET 22220 11/14/20240 04/2024, 11/13/2022, 11/10/2021, Additional history exists Depression Screening 11/14/2024 11/15/2023 HbA1c 11/14/2024 11/15/2023, 0 03/2023, 11/10/2021, Additional history exists Lipid Panel 11/14/2028 11/15/2023, 0 03/2023, 11/10/2021, Additional history exists Pneumococcal Vaccine: 65+ Years Completed 10/24/2015, 10/20/2014, 06/02/2004, Additional history exists Zoster Vaccines Completed 02/17/2019, 0 12/2018, 11/04/2018, Additional history exists COVID-19 Vaccine [...] as of this encounter Visit Diagnoses Diagnosis Medial epicondylitis of right elbow- Primary Medial epicondylitis of elbow documented in this encounter Advance Directives Documents on File Type Date Recorded 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
--- OUTSIDE RECORDS SUMMARY | 2024-04-13 18:39 | External Medical Summary ---
Author Name Unknown Address Unknown Organization K01:[facility] [place] - [address] [place] [address] Laboratory Report Ordering Provider Test Date Status ROD FUENTESBRO 11/15/2023 10:34:24 Final Observation Date Value Abnormality Reference (Units ) Status Hep C Ab 11/15/2023 10:34:24 Negative Negative Final Further HCV quantitative danika ting not performed per protocol. Performing Location [facility] [place] - [address] [place] [id number]
--- OUTSIDE RECORDS SUMMARY | 2024-04-13 18:39 | External Medical Summary | Summary of Care ---
Author Name Unknown Organization [facility] Address [address] [facility] [place] [address] Phone [phone] Care Team Providers Care Scraper Hand Name Role Phone Miguelangel Hernández MD Primary Care Provider [phone] Reason for Visit * Reason Comments Follow Up Skin check- no acute concerns today Encounter Details Date Type Department Care Team (Late st Contact Info) Description 10/10/2023 10:40 AM EST Office Visit [facility] [place] [address] [place] [address] Ellen Allison PA-C [address] [place] [phone] Skin exam, screening for cancer*; Hx of actinic keratosis; Actinic keratosis; Diffuse photodamage of skin Allergies Active Allergy Reactions Criticality Noted Date Comments Other - Environmental 06/06/2004 hayfever Soy Allergy 11/26/2013 [employer] [place] [employer] Extract Hives 11/10/2021 documented as of this encounter (statuses as of 10/18/2023) Medications Medication Sig Dispensed Refills Start Date [...] as of this encounter (statuses as of 10/18/2023) Active Problems Problem Noted Date Diagnosed Date [...] as of this encounter (statuses as of 10/18/2023) Resolved Problems Problem Noted Date Diagnosed Date [...] as of this encounter (statuses as of 10/18/2023) Immunizations Name Administration Dates Next Due COVID-19 [...] on file documented as of this encounter Progress Notes * Michael Gray MD - 10/18/2023 9:07 PM EST I have reviewed the charting notes and orders and associated images and agree with the assessment and plan of Ellen Allison PA-C I was available for consultation during and after the visit Michael Gray MD 10/18/2023 9:07 PM * Ellen Allison PA-C - 10/10/2023 10:34 AM EST SUBJECTIVE: History of Present Illness: Gabriel Goyal is a 73 year old male seen today for follow up of skin check. 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 HEME/LYMPH: No new or enlarging lumps or bumps. MEDICA TIONS: Current Outpatient Medications Medication Sig Dispense Refill [...] No current facility-administered medications for this visit. ALLERG IES: Other - environmental, Soy allergy, and [employer] extract OBJECTIVE: GEN: Healthy, alert, no distress, appears oriented, pleasant, and cooperative. SKIN: Detailed exam of hair, face including lids and lips, neck, chest, abdomen, back, bilateral upper ext. (arm, hand, fingers), bilateral lower ext. (leg, foot, toes), and palpation of scalp completed and are normal except: 1. Scar- L inferior eyelid 2. Scar- upper midback 3. L cheek- clear 4. L helical rim- sharp keratotic scale ASSESS MENT/PLAN: 1. Hx NMSC - no evidence of recurrence Discussed sun protection with patient including proper use of sunscreens and protective clothing. ABCDs explained 2. Hx of junctional melanocytic proliferation, no sign of reoccurrence. 3. Previous AK, resolved. 4. AK. Cryosurgery explained to the patient, consent obtained, patient, site and procedure verified, and then cryotherapy was performed with Liquid Nitrogen via cryo spray unit to 1 lesions. Locationnoted in physical exam. Post op course explained. *bx if recalcitrant, pt aware to notify us if it does not resolve Follow-up: 1 year There were no barriers tolearning and no other pain was related to today's visit. The patient and/or person accompanying patient demonstrates understanding of the visit and treatment. Ellen Allison PA-C 10/10/2023 10:34 AM documented in this encounter Nursing Notes * Shena Santoro LPN - 10/10/2023 10:25 AM EST Patient identified by name and date of . Do you have any concerns about pain management for today's visit? No Living Will or Advance Directive for Health Care as noted on problem list. Smart Paneler is a way you can talk to your provider online through e-mail. Would you like to sign up? I can activate it for you? ALREADY ACTIVE Chief Complaint Patient presents with Follow Up Skin check- no acute concerns today documented in this encounter Plan of Treatment Upcoming Encounters Date Type Department Care Team (Late st Contact Info) Description 11/15/2023 9:40 AM EST Office Visit [facility] [address] [facility] [place] [phone] Miguelangel Hernández MD [address] [facility] [place] [address] 11/11/2024 10:40 AM EST Office Visit Dermatology [facility] [address] [place] [address] Ellen Allison PA-C [address] [place] [phone] Scheduled Procedures Name Priority Associated Diagnoses Date/Ti [...] 07/06/2019, Additional history exists GFR 05/16/2023 11/13/2022, 12/2021, 11/08/2020, Additional history exists CKD HGB USE SMARTSET 50202 11/14/202311/13, 11/10/2021, 11/08/2020, Additional history exists CKD PHOS USE SMARTSET 40669 11/14/20230 03/2023, 11/10/2021, 11/08/2020, Additional history exists Depression Screening 11/14/2023 11/13/2022 HbA1c 11/14/2023 11/13/2022, 12/2021, 11/08/2020 Colonoscopy 11/27/2023 11/26/2013, 11/26/2013 Colorectal Cancer Screening 11/27/2023 DTaP,Tdap,and Td Vaccines (3 - Td or Tdap) 10/16/2024 10/16/2014, 10/16/2013, 04/23/2007, Additional history exists Lipid Panel 11/14/2027 11/13/2022, 12/2021, 11/08/2020, Additional history exists Pneumococcal Vaccine: [...] Procedure Name Priority Date/Time Associated Diagnosis Comments DERM IMAGE (SITE) Routine 10/10/2023 Actinic keratosis documented in this encounter Results * DERM IMAGE (SITE) (10/10/2023) 10/10/2023 Ellen Allison PA-C DIGITAL PHOTOGR APHY documented in this encounter Visit Diagnoses Diagnosis Skin exam, screening for cancer- Primary Screening for malignant neoplasm of the skin Hx of actinic keratosis Personal history of diseases of skin and subcutaneous tissue Actinic keratosis Diffuse photodamage of skin Other chronic dermatitis due to solar radiation documented in this encounter Care Teams Scraper Hand Relationship Specialty Start Date End Date Miguelangel Hernández MD [address] [facility] [place] [address] PCP - General 01/29/02 documented as of this encounter
--- OUTSIDE RECORDS SUMMARY | 2024-04-13 18:39 | External Medical Summary ---
Author Name Unknown Address Unknown Organization [id number]:[facility] - [address] [facility] [place] [address] Laboratory Report Ordering Provider Test Date Status ÁNGEL FUENTES 11/15/2023 10:34:24 Final Observation Date Value Abnormality Reference (Units ) Status BUN 11/15/2023 10:34:24 22 Above high normal 6-20 (mg/dL) Final Creatinine 11/15/2023 10:34:24 1.3 Above high normal 0.6-1.2 (mg/dL) Final Glomerular filtration rate/1.73 sq M.predicted [Volume Rate/Area] in Serum, Plasma or Blood by Creatinine-based formula (CKD-EPI) 11/15/2023 10:34:24 56 Below low normal >=60 (mL/min) Final eGFR is calculated based on the CKD-EPI 2020 equation SODIUM 11/15/2023 10:34:24 134 Below low normal 135 -146 (mmol/L) Final Potassium 11/15/2023 10:34:24 4.4 3.5-5.1 (m mol/L) Final Cl 11/15/2023 10:34:24 96 Below low normal 98- 107 (mmol/L) Final CO2 11/15/2023 10:34:24 27 22-32 (mmo l/L) Final Anion gap 11/15/2023 10:34:24 11 7-15 (mmol /L) Final Glucose 11/15/2023 10:34:24 100 70-120 (mg /dL) Final Albumin 11/15/2023 10:34:24 4.7 3.8-5.0 (g /dL) Final AST (Aspartate aminotransferase) 11/15/2023 10:34:24 29 10-50 (U/L) Fin al Alk Phos 11/15/2023 10:34:24 87 35-130 (U/ L) Final Bilirubin, Total 11/15/2023 10:34:24 0.7 <=1 .2 (mg/dL) Final Calcium 11/15/2023 10:34:24 9.8 8.4-10.2 ( mg/dL) Final Protein 11/15/2023 10:34:24 7.1 6.0-8.3 (g /dL) Final ALT (Alanine aminotransferase) 11/15/2023 10:34:24 30 10-50 (U/L) Nish malone Performing Location [facility] - [address] [facility] [place] [address]
--- OUTSIDE RECORDS SUMMARY | 2024-04-13 18:39 | External Medical Summary ---
Author Name Unknown Address Unknown Organization [id number]:[facility] [place] - [address] [address] Laboratory Report Ordering Provider Test Date Status ÁNGEL FUENTES 11/15/2023 10:34:24 Final Normal: <30 mg/g creatinine< br/>High: 30-300 mg/g creatinine
Very High: >300 mg/g creatinine
Nephrotic: >2200 mg/g creatinine Observation Date Value Abnormality Reference (Units ) Status Albumin, Urine 11/15/2023 10:34:24 <1.20 (mg/dL) Final Creatinine, Urine 11/15/2023 10:34:24 120 (mg/dL) Final Albumin/Creatinine [Mass Ratio] in Urine 11/15/2023 10:34:24 <10 <30 (mg/g Creat) Final Performing Location [facility] [place] - [address] [address]
--- OUTSIDE RECORDS SUMMARY | 2024-04-13 18:39 | External Medical Summary ---
Author Name Unknown Address Unknown Organization [id number]:[facility] [place] - [address] [place] [address] Laboratory Report Ordering Provider Test Date Status ÁNGEL FUENTES 11/15/2023 10:34:24 Final Observation Date Value Abnormality Reference (Units ) Status Hemoglobin 11/15/2023 10:34:24 14.3 14.0-16.8 (g/dL) Final Performing Location [facility] - [address] [place] [address]
--- OUTSIDE RECORDS SUMMARY | 2024-04-13 18:39 | External Medical Summary | Summary of Care ---
Author Name Unknown Organization [facility] Address [address] [facility] [place] [address] Phone [phone] Care Team Providers Care Paper Folding Machine Operator Name Role Phone Miguelangel Hernández MD Primary Care Provider Reason for Visit * Reason Onset Date Comments Appointment 11/15/2023 Colonoscopy Encounter Details Date Type Department Care Team (Late st Contact Info) Description 11/15/2023 Telephone [facility] [address] [place] [address] Miguelangel Hernández MD [address] [place] [address] Appointment (Colonoscopy) Allergies Active Allergy Reactions Criticality Noted Date Comments Other - Environmental 06/06/2004 hayfever Soy Allergy 11/26/2013 [place] Extract Hives 11/10/2021 documented as of this [...] encounter Miscellaneous Notes * Telephone Encounter - Nemo Hussein OSA - 11/15/2023 10:24 AM EST Please contact patient to schedule Colonoscopy. Patient would like this done at [facility]. Dx: Special screening for malignant neoplasms, colon [Z12.11] Thank you. documented in this encounter Plan of Treatment Upcoming Encounters Date Type Department Care Team (Late st Contact Info) Description 11/11/2024 10:40 AM EST Office Visit Dermatology [facility] [address] [place] [address] Ellen Allison PA-C [address] [place] [phone] 11/16/2024 9:40 AM EDT Office Visit [facility] [address] [place] [address] Miguelangel Hernández MD [address] [place] [address] Scheduled Procedures Name Priority Associated [...] Additional history exists CKD HGB USE SMARTSET 50282 11/14/202311/13, 11/10/2021, 11/08/2020, Additional history exists CKD PHOS USE SMARTSET 10708 11/14/20230 03/2023, 11/10/2021, 11/08/2020, Additional history exists HbA1c 11/14/2023 11/13/2022, 0 12/2021, 11/08/2020 Colonoscopy 11/27/2023 11/26/2013, 11/26/2013 Colorectal Cancer Screening 11/27/2023 DTaP,Tdap,and Td Vaccines (3 - Td or Tdap) 10/16/2024 10/16/2014, 10/16/2013, 04/23/2007, Additional history exists Depression Screening 11/14/2024 11/15/2023 Lipid Panel 11/14/2027 11/13/2022, 0 12/2021, 11/08/2020, Additional history exists Pneumococcal Vaccine: [...] Not on filedocumented as of this encounter Care Teams Paper Folding Machine Operator Relationship Specialty Start Date End Date Miguelangel Hernández MD [address] [place] [address] PCP - General 01/29/02 documented as of this encounter
--- OUTSIDE RECORDS SUMMARY | 2024-04-13 18:39 | External Medical Summary ---
Author Name Unknown Address Unknown Organization K01:[facility] - [address] [address] Laboratory Report Ordering Provider Test Date Status ÁNGEL FUENTES 11/15/2023 10:34:24 Final Observation Date Value Abnormality Reference (Units ) Status Phosphate 11/15/2023 10:34:24 4.3 2.5-4.8 (m g/dL) Final Performing Location [facility] - [address] [place] [address]
--- OUTSIDE RECORDS SUMMARY | 2024-04-13 18:39 | External Medical Summary | Summary of Care ---
Author Name Unknown Organization [facility] Address [address] [place] [facility] [place] [address] Phone [phone] Care Team Providers Care Clothespin Machine Operator Name Role Phone Miguelangel Hernández MD Primary Care Provider [phone] Reason for Visit * Reason Comments Outpatient Testing Encounter Details Date Type Department Care Team (Late st Contact Info) Description 11/15/2023 10:30 AM EST Laboratory [facility] [place] [address] [place] [address] [place] [address] [place] [address] Chronic kidney disease, unspecified CKD stage; Dyslipidemia, goal LDL below 100; Prediabetes; Need for hepatitis C screening test; Stage 3a chronic kidney disease (HCC); HTN, goal below 140/90 Allergies Active Allergy Reactions Criticality Noted Date Comments Other - Environmental 06/06/2004 hayfever Soy Allergy 11/26/2013 [place] Extract Hives 11/10/2021 documented as of this [...] AM EST Office Visit Dermatology [facility] [place] [address] [place] [address] Ellen Allison PA-C [address] [place] [phone] 11/16/2024 9:40 AM EDT Office Visit [facility] [address] [place] [address] Miguelangel Hernández MD [address] [place] [address] Pending Results Name Type Priority Associated Diagnoses Date /Time ALBUMIN / CREATININE RATIO, URINE Lab Routine Chronic kidney disease, unspecified CKD stage 11/15/2023 10:34 AM EST COMPREHENSIVE METABOLIC PANEL Lab Routine Chronic kidney disease, unspecified CKD stage 11/15/2023 10:34 AM EST LIPID PANEL WITH DIRECT LDL IF TG IS HIGH Lab Routine Dyslipidemia, goal LDL below 100 11/15/2023 10:34 AM EST HEMOGLOBIN A1C Lab Routine Prediabetes 11/15/2023 10:34 AM EST HEPATITIS C ANTIBODY SCREEN WITH PROGRESSION TO HEPATITIS C RNA QUANTITATIVE Lab Routine Need for hepatitis C screening test 11/15/2023 10:34 AM EST HGB Lab Routine Stage 3a chronic kidney disease (HCC) 11/15/2023 10:34 AM EST HEPATITIS C ANTIBODY Lab Routine Need for hepatitis C screening test 11/15/2023 10:34 AM EST HEPATITIS C RNA ADD ON Lab Routine Need for hepatitis C screening test 11/15/2023 10:34 AM EST Scheduled Procedures Name Priority Associated Diagnoses Date/Ti [...] 07/06/2019, Additional history exists GFR 05/16/2023 11/13/2022, 0 12/2021, 11/08/2020, Additional history exists CKD HGB USE SMARTSET 08254 11/14/202311/13, 11/10/2021, 11/08/2020, Additional history exists CKD PHOS USE SMARTSET 03585 11/14/2023 03/0 03/2023, 11/10/2021, 11/08/2020, Additional history exists HbA1c 11/14/2023 11/13/2022, 0 12/2021, 11/08/2020 Colonoscopy 11/27/2023 11/26/2013, 11/26/2013 Colorectal Cancer Screening 11/27/2023 DTaP,Tdap,and Td Vaccines (3 - Td or Tdap) 10/16/2024 10/16/2014, 10/16/2013, 04/23/2007, Additional history exists Depression Screening 11/14/2024 11/15/2023 Lipid Panel 11/14/2027 11/13/2022, 12/2021, 11/08/2020, Additional [...] as of this encounter Visit Diagnoses Diagnosis Chronic kidney disease, unspecified CKD stage Dyslipidemia, goal LDL below 100 Other and unspecified hyperlipidemia Prediabetes Other abnormal glucose Need for hepatitis C screening test Special screening examination for other specified viral diseases Stage 3a chronic kidney disease (HCC) HTN, goal below 140/90 Unspecified essential hypertension documented in this encounter Care Teams Clothespin Machine Operator Relationship Specialty Start Date End Date Miguelangel Hernández MD [address] [place] [facility] [place] [address] PCP - General 01/29/02 documented as of this encounter
--- OUTSIDE RECORDS SUMMARY | 2024-04-13 18:39 | External Medical Summary | Summary of Care ---
Author Name Unknown Organization [facility] Address [address] [facility] [place] [address] Phone [phone] Care Team Providers Care Elevator Builder Name Role Phone Miguelangel Hernández MD Primary Care Provider [phone] Reason for Visit * Reason Comments Follow Up Skin check- no acute concerns today Encounter Details Date Type Department Care Team (Late st Contact Info) Description 10/10/2023 10:40 AM EST Office Visit [facility] [place] [place] [address] [place] [address] Ellen Allison PA-C [address] [place] [phone] Skin exam, screening for cancer*; Hx of actinic keratosis; Actinic keratosis; Diffuse photodamage of skin Allergies Active Allergy Reactions Criticality Noted Date Comments Other - Environmental 06/06/2004 hayfever Soy Allergy 11/26/2013 [place] Extract Hives 11/10/2021 documented as of this encounter (statuses as of 10/16/2023) Medications Medication Sig Dispensed Refills Start Date [...] as of this encounter (statuses as of 10/16/2023) Active Problems Problem Noted Date Diagnosed Date [...] as of this encounter (statuses as of 10/16/2023) Resolved Problems Problem Noted Date Diagnosed Date [...] as of this encounter (statuses as of 10/16/2023) Immunizations Name Administration Dates Next Due COVID-19 [...] as of this encounter Progress Notes * Ellen Allison PA-C - 10/10/2023 10:34 [...] with surrounding lentigo on the central back [id number]/[id number] 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 App.ioer is a way you can talk to [...] Description 11/15/2023 9:40 AM EST Office Visit [place] [address] [facility] [place] [phone] Miguelangel Hernández MD [address] [place] [address] 11/11/2024 10:40 AM EST Office Visit Dermatology [facility] [place] [address] [place] [address] Ellen Allison PA-C [address] [place] [phone] Scheduled Procedures Name Priority Associated Diagnoses Date/Ti [...] Additional history exists CKD HGB USE SMARTSET 36169 11/14/202311/13, 11/10/2021, 11/08/2020, Additional history exists CKD PHOS USE SMARTSET 49091 11/14/2023 030 03/2023, 11/10/2021, 11/08/2020, Additional history exists Depression [...] radiation documented in this encounter Care Teams Elevator Builder Relationship Specialty Start Date End Date Miguelangel Hernández MD [address] [place] [address] PCP - General 01/29/02 documented as of this encounter
--- OUTSIDE RECORDS SUMMARY | 2024-04-13 18:39 | External Medical Summary ---
Author Name Unknown Address Unknown Organization K01:[facility] - [address] [facility] [facility] [address] Laboratory Report Ordering Provider Test Date Status ROD FUENTESBRO 11/15/2023 10:34:24 Final Observation Date Value Abnormality Reference (Units ) Status HbA1C 11/15/2023 10:34:24 6.0 Above high normal 4. 0-5.6 (%) Final The use of HbA1c to monitor glycemic status is based on normal hemoglobin and HbA composition. This test should not be used in patients with abnormal hemoglobin that affects the half life of the red blood cell or the in vivo glycation rates. Glucose, estimated average 11/15/2023 10:34:24 126 Above high normal <126 (mg/dL) Nish malone Performing Location [facility] - [address] [facility] [address]
--- OUTSIDE RECORDS SUMMARY | 2024-04-13 18:39 | External Medical Summary | Summary of Care ---
Author Name Unknown Organization [facility] Address [address] [facility] [place] [address] Phone [phone] Care Team Providers Care Water Pump Operator Name Role Phone Miguelangel Hernández MD Primary Care Provider Reason for Visit * Reason Comments Follow Up Skin check- no acute concerns today Encounter Details Date Type Department Care Team (Late st Contact Info) Description 10/10/2023 10:40 AM EST Office [facility] [place] [address] [place] [address] Ellen Allison PA-C [address] [place] [phone] Skin exam, screening for cancer*; Hx of actinic keratosis; Actinic keratosis; Diffuse photodamage of skin Allergies Active Allergy Reactions Criticality Noted Date Comments Other - Environmental 06/06/2004 hayfever Soy Allergy 11/26/2013 [place] Extract Hives 11/10/2021 documented as of this encounter (statuses as of 10/17/2023) Medications Medication Sig Dispensed Refills Start Date [...] as of this encounter (statuses as of 10/17/2023) Active Problems Problem Noted Date Diagnosed Date [...] as of this encounter (statuses as of 10/17/2023) Resolved Problems Problem Noted Date Diagnosed Date [...] as of this encounter (statuses as of 10/17/2023) Immunizations Name Administration Dates Next Due COVID-19 [...] with surrounding lentigo on the central back [id number]/[id number] 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 Coradianter is a way you can talk to [...] Description 11/15/2023 9:40 AM EST Office Visit [place] [address] [facility] [place] [phone] Miguelangel Hernández MD [address] [place] [address] 11/11/2024 10:40 AM EST Office Visit Dermatology [facility] [place] [address] [place] [address] Ellen Allison PA-C [address] [place] [...] Additional history exists CKD HGB USE SMARTSET 98772 11/14/202311/13, 11/10/2021, 11/08/2020, Additional history exists CKD PHOS USE SMARTSET 58170 11/14/2023 030 03/2023, 11/10/2021, 11/08/2020, Additional history [...] radiation documented in this encounter Care Teams Water Pump Operator Relationship Specialty Start Date End Date Miguelangel Hernández MD [address] [place] [address] PCP - General 01/29/02 documented as of this encounter
--- NOTE | 2024-04-13 18:59 | Post Operative Brief Note ---
PG Immediate Post Op with CF Date of Surgery April 13, 2024 Pre & Post Diagnosis Operation Date: 04/13/24 18:20 Pre-Op Diagnosis: Open Mandibular Fracture Post-Op Diagnosis: Open Mandibular Fracture I identified the patient and participated in the time-out.: Yes Procedure Operation Date: 04/13/24 18:20 Actual Procedures p Open Reduction Mandibular Fracture, Repair of Facial Laceration(Not Applicable) - Mark Ledesma DMD s Extraction of Fractured Teeth #24, #25, #26(Not Applicable) - Mark Ledesma DMD Surgeon Mark Ledesma DMD Neurology Teacher none Estimated Blood Loss 50 Findings Consistent with Post-Op Diagnosis 6 cm complex oral facial laceration Segmental fracture of the anterior mandible with fracture of teeth # 24,25,26 Fracture of the right lateral mandibular fracture Specimens Specimen Description: None per surgeon Anesthesia Type General Disposition Accompanied Patient To Recovery: Yes
[2024-04-13] MEDS: fentaNYL citrate PF 100 MCG/2 ML VIAL IV PRN (19:10)
[2024-04-13] MEDS: ACETAMINOPHEN 1,000 MG/100 ML VIAL IV SCH (20:01)
[2024-04-14] MEDS ORDERED: ONDANSETRON INJ 2 MG/ML 2 ML VIAL IV PRN (05:39)
[2024-04-14] MEDS: AMPICILLIN/SULBACTAM SOD 3,000 MG in SODIUM CHLOR 0.9% MINI-B 100 ML IV SCH (06:02)
[2024-04-14 06:50] LABS: Basophils # (auto) 0.01 K/uL (0.00-0.20); Basophils % (auto) 0.1 %; Hematocrit (blood only) 36.4 % (42.0-52.0); Hemoglobin 12.4 g/dl (14.0-18.0); Immature Granulocytes # (auto) 0.07 K/uL (0.01-0.20); Immature Granulocytes % (auto) 0.6 %; Lymphocytes # (auto) 1.01 K/uL (1.20-3.40); Lymphocytes % (auto) 8.8 %; Mean Corpuscular Hemoglobin 28.6 pg (25.0-34.0); Mean Corpuscular Hgb Conc 34.1 g/dL (32.0-36.0); Mean Corpuscular Volume 84.1 fL (80.0-100.0); Mean Platelet Volume 8.1 fL (9.4-12.4); Monocytes # (auto) 0.83 K/uL (0.11-0.59); Monocytes % (auto) 7.2 %; Neutrophils # (auto) 9.54 K/uL (1.40-6.50); Neutrophils % (auto) 83.3 %; Platelet Count 185 K/uL (130-400); RDW Coefficient of Variation 12.8 % (11.5-14.5); RDW Standard Deviation 38.9 fL (36.4-46.3); Red Blood Count 4.33 M/uL (4.70-6.10); White Blood Count 11.46 K/ul (4.8-10.8)
[2024-04-14 07:12] LABS: BUN Creatinine Ratio 18.4 (10-20); Calcium 8.6 mg/dl (8.6-10.3); Creatinine Clr Calc Pharmacy 52.7 ml/min; Est GFR (African American) 64.9 ml/min; Potassium 4.6 mmol/L (3.5-5.1)
[2024-04-14] MEDS: CHLORHEXIDINE GLUCONATE 0.12% 480 ML MT PRN (08:03)
[2024-04-14] MEDS: ENOXAPARIN INJ 40 MG/0.4 ML SYR SQ SCH (08:03)
[2024-04-14 08:28] VITALS: BP 134/67; PULSE 85; RESP 18; TEMP 97.2; O2SAT 96
--- NOTE | 2024-04-14 09:01 | Oral/Maxillofacial Progress Nt ---
Date of Service April 14, 2024 Assessment & Plan Admission and Anticipated Discharge Date Admission Date: April 13, 2024 Subjective Jaw fracture and repair of facial laceration surgery post op note at 18 hours Excellent result, ROM improving Sutures in place Complex laceration repair looks good Tissue tone, gingival tissue/facial tissues--excellent Occlusion very stable with a reproducible bite. No TMJ issues-pain, nose, pop. No nasal congestion or bleeding, septum well positioned. No sinus issues Facial alignment excellent I reviewed home care -diet SOFT ONLY, wound care Reviewed post op care--diet, oral care, follow up Next appointment set up for: Overall excellent result from recent OR procedure RTC for continued follow up May 01 at 2:30 Results & Data Vital Signs (Past 12 Hours) Vital Signs Temp Pulse Pulse Resp BP Pulse Ox O2 Del Method 04/14/24 08:27 36.2 C L 85 18 134/67 96 Room Air 04/14/24 07:30 74 04/14/24 02:37 36.5 C 71 16 121/72 94 Room Air 04/14/24 00:05 79 04/13/24 23:14 36.5 C 71 17 121/70 94 Room Air PG Care Time/CCT Total # of Minutes Spent Total Time Spent with Patient: Total time spent is greater than 50% in coordination of care (as documented) at patient's floor/unit and/or counseling patient: Coding Level of Care Code None
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
--- NOTE | 2024-04-14 14:17 | Anesthesiology Progress Note ---
Date of Service April 14, 2024 Anesthesia Post Procedure Vital Signs Vital Signs: Temp Pulse Pulse Resp BP Pulse Ox O2 Del Method 04/14/24 08:27 36.2 C L 85 18 134/67 96 Room Air 04/14/24 07:30 74 04/14/24 02:37 36.5 C 71 16 121/72 94 Room Air 04/14/24 00:05 79 04/13/24 23:14 36.5 C 71 17 121/70 94 Room Air 04/13/24 19:45 36.5 C 81 19 144/96 H 95 Room Air 04/13/24 19:35 80 17 128/75 93 Room Air 04/13/24 19:25 36.4 C L 82 19 144/79 H 93 Room Air 04/13/24 19:15 83 17 135/86 99 Room Air 04/13/24 19:05 86 17 149/89 H 100 Oxymask 04/13/24 18:57 36.5 C 87 18 125/94 98 Oxymask 04/13/24 15:14 36.6 C 88 18 151/77 H 96 Room Air O2 Flow Rate 04/14/24 08:27 04/14/24 07:30 04/14/24 02:37 04/14/24 00:05 04/13/24 23:14 04/13/24 19:45 04/13/24 19:35 04/13/24 19:25 04/13/24 19:15 04/13/24 19:05 5 04/13/24 18:57 5 04/13/24 15:14 Pain Intensity Jaw: Pain Intensity: 1 Transfer of Care Handoff Completed per policy Notes Mental Status: alert / awake / arousable Patient Amnestic to Procedure: Yes Nausea / Vomiting: adequately controlled Pain: adequately controlled Airway Patency, RR, SpO2: stable & adequate BP & HR: stable & adequate Hydration State: stable & adequate Anesthetic Complications: no major complications apparent
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
== END 2024-04-14 11:38 | disposition home or self-care (01) | DRG 141 ==
LOC: ED 11:13 → SUATTDRO 13:05 → INTOOBSV 13:05 → OR 14:55 → EDINP 15:06 → OR 15:22 → 2E 19:50